=== PATIENT | female | born 1980 | race Hispanic/Latino ===

== ENCOUNTER 2020-04-14 07:50 | Day surgery (SDC) | payer BC ==
[2020-04-13 14:41] LABS: Absolute Lymphocytes (CBC) 1.6 K/uL (0.7-4.9); Basophils % 0.9 % (0-1.3); Lymphocytes % 31.8 % (15.3-44.8); MPV 8.6 fL (7.6-11.3); RBC Red Blood Cell Count 4.59 M/uL (3.86-4.86)
--- NOTE | 2020-04-13 14:51 | RAD REPORT ---
EXAM DESCRIPTION: RAD - Chest Pa And Lat (2 Views) - 04/13/2020 2:47 pm CLINICAL HISTORY: PRE OP Chest pain. COMPARISON: No comparisons FINDINGS: The lungs are clear. The heart is normal in size. No displaced fractures. IMPRESSION: No acute or concerning finding suspected.
[2020-04-13 15:33] LABS: Bilirubin Direct 0.1 mg/dL (0-0.2); Bilirubin Total 0.5 mg/dL (0.2-1.0); Potassium 3.7 mmol/L (3.5-5.1); Protein, Total 7.7 g/dL (6.4-8.2)
[2020-04-14] MEDS ORDERED: Ringers Lactate 1,000 ML IV ONE (08:17)
[2020-04-14] MEDS ORDERED: ROCURONIUM 50 MG/5 ML VIAL IV ONE ×2 (08:22→08:34)
[2020-04-14] MEDS ORDERED: propofoL 200 MG/20 ML VIAL IV ONE ×2 (08:22→08:34)
[2020-04-14] MEDS ORDERED: LIDOCAINE 2% MPF 5 ML VIAL ONE ×2 (08:23→08:34)
[2020-04-14] MEDS ORDERED: GLYCOPYRROLATE 0.2 MG/ML SYR ONE ×2 (08:23→09:40)
[2020-04-14] MEDS ORDERED: FENTANYL CITR 250 MCG/5 ML ONE (08:23)
[2020-04-14] MEDS ORDERED: MIDAZOLAM HCL 2 MG/2 ML INJ ONE ×2 (08:23→08:34)
[2020-04-14] MEDS ORDERED: ONDANSETRON 4 MG/2 ML VIAL ONE ×3 (08:25→10:39)
[2020-04-14] MEDS ORDERED: KETOROLAC 30 MG/ML INJ ONE (08:34)
[2020-04-14] MEDS ORDERED: dexAMETHasone 10 MG/ML VIAL ONE (08:34)
[2020-04-14] MEDS ORDERED: FENTANYL CITR 100 MCG/2 ML ONE (08:34)
[2020-04-14] MEDS: CEFOXITIN/SWI 1gm 1 GM/10 ML SYR ONE ×2 (08:46→09:00)
[2020-04-14] MEDS ORDERED: NEOSTIGMINE 1 MG/ML -5 ML ONE (09:40)
[2020-04-14] MEDS: PROMETHAZINE INJ 25 MG/ML AMP ONE ×2 (10:00→10:09)
[2020-04-14] MEDS ORDERED: Mastisol Adhesive Liq ONE (10:02)
[2020-04-14] MEDS ORDERED: HYDROMORPHONE HCL 1 MG/ML INJ ONE (10:16)
[2020-04-14] MEDS ORDERED: MEPERIDINE HCL 25 MG/ML SYR ONE (10:19)
--- NOTE | 2020-04-14 10:34 | OP ---
Date of Procedure: 04/14/2020 Surgeon: Luis Miguel Escalona MD Commercial Marketing Specialist: ANALY Acevedo. Preoperative Diagnosis: Chronic cholecystitis, cholelithiasis. Postoperative Diagnosis: Chronic cholecystitis, cholelithiasis. Procedure: Laparoscopic cholecystectomy. Estimated Blood Loss: Minimal. Specimen: Gallbladder. Finding: As above. Anesthesia: General. Complications: None. The patient tolerated the procedure in stable condition, taken to Recovery in good general condition. Procedure In Detail: The patient was brought to the OR and placed in supine position. General anest hesia was begun. Patient was prepped and draped in usual sterile fashion. Marcaine 0.5% was infiltr ated locally. A 15-blade was used to make a 1 cm supraumbilical midline incision. Subcutaneous tiss ue was divided. Fascia identified and divided. #1 Vicryl stay suture was placed. Peritoneal cavity was entered with sharp and blunt dissection. 12 mm trocar was placed into the peritoneal cavity und er direct vision. Pneumoperitoneum was established. Three 5 trocars were placed under direct vision . One in the epigastrium just to the right of midline and 2 in the right subcostal region. Laparosc opy revealed chronic inflammation of the gallbladder consistent with chronic cholecystitis. Fundus w as retracted superiorly. Infundibulum was identified and retracted inferolaterally. Cystic duct and cystic artery were clearly identified with blunt dissection. Clips were placed. Both structures we re divided. Cautery was used to remove the gallbladder from the liver bed. Bleeding on the liver be d was controlled with cautery. Gallbladder was retrieved through the umbilicus via an EndoCatch bag. Right upper quadrant was irrigated. Effluent was clear. No evidence of bleeding or bile leakage a ppreciated. Subsequently, all trocars were removed under direct vision. Stay sutures were tied to e ach other across the fascial defect. Subcutaneous wounds were irrigated. Bleeding controlled with c autery. 3-0 chromic used to approximate the subcutaneous tissue and close the skin. Sterile dressin g was applied. The patient was awakened and taken to Recovery in good general condition. Discharge Note: The patient will go to Day Surgery and home when stable. Disposition: Home. Condition: Stable. Discharge Instructions: Resume home medications and diet. Activity as tolerated. No heavy lifting. Remove outer dressing in 2 days. Shower. Keep wound clean dry. Follow up in my office 1 week. C all for appointment. Tylenol No. 3 one tablet p.o. q.4 p.r.n. pain. THERON/DEMETRIO Voice ID: [id number] Report ID: [id number]
[2020-04-14 11:41] VITALS: BP 125/82; TEMP 97; O2SAT 96
[2020-04-14] MEDS ORDERED: HYDROCODONE/APAP 7.5/325 MG TAB ONE (11:42)
== END 2020-04-14 12:00 | disposition home health service (06) ==
LOC: OR 07:50
PROVIDERS: ATTEND Surgery
PROC: 0FT44ZZ Resection of Gallbladder, Percutaneous Endoscopic Approach (ICD-10-PCS; principal; 2020-04-14 09:00)
DX: K80.10 Calculus of gallbladder with chronic cholecystitis without obstruction (principal); Z91.013 Allergy to seafood; Z20.828 Contact with and (suspected) exposure to other viral communicable diseases
CPT/HCPCS: 93005 ×2; 85025; 80048; 36415; 82150; 84703; 80076; 88304; 71046; 47562; U0003; J2704; J2550; J2250; J3010 ×2; J1100; J2175; J1170; J2710; J7120; J2405 ×2

== ENCOUNTER 2021-01-17 00:37 | Inpatient (IN) | payer BC ==
[2021-01-17 01:27] LABS: Absolute Lymphocytes (CBC) 1.8 K/uL (0.7-4.9); Basophils % 0.6 % (0-1.3); Hematocrit 42.5 % (36.0-45.0); Lymphocytes % 23.7 % (15.3-44.8); MPV 8.3 fL (7.6-11.3); RBC Red Blood Cell Count 4.85 M/uL (3.86-4.86)
[2021-01-17] MEDS ORDERED: ONDANSETRON 4 MG/2 ML VIAL ONE ×2 (01:37→04:15)
[2021-01-17] MEDS ORDERED: NA CHLORIDE 0.9% 1,000 ML ONE (01:37)
[2021-01-17 01:38] LABS: Albumin 4.4 g/dL (3.4-5.0); Bilirubin Direct 0.2 mg/dL (0-0.2); Bilirubin Total 0.6 mg/dL (0.2-1.0); Potassium 3.4 mmol/L (3.5-5.1); Protein, Total 8.8 g/dL (6.4-8.2)
[2021-01-17] MEDS ORDERED: MORPHINE 4 MG/ML SYR ONE ×2 (02:11→04:43)
[2021-01-17 02:12] LABS: Urine Blood 2+ (Negative); Urine Glucose Negative (Negative); Urine Protein Trace (Negative); Urine Specific Gravity >=1.030 (1.005-1.030); Urine pH 5.5 (5.0-7.0)
[2021-01-17 03:04] LABS: Urine Specific Gravity/Preg >1.030 (1.005-1.030)
[2021-01-17 03:52] LABS: Urine Bacteria 20-50 /HPF (<20); Urine RBC <5 /HPF (NONE SEEN)
--- NOTE | 2021-01-17 04:11 | ER ---
Nurse's Notes [facility] Name: Eros Craft Age: 40 yrs Sex: Female : 1980 Arrival Date: 01/17/2021 Time: 00:40 Bed 4 Private MD: Diagnosis: Other intestinal obstruction Presentation: 01/17 00:53 Chief complaint: Patient states: she has abdominal adhesions from prior surgery she bb sees Dr Escalona today she was running and afterwards she started having severe abdominal pain and nausea. Coronavirus screen: At this time, the client does not indicate any symptoms associated with coronavirus-19. Ebola Screen: No symptoms or risks identified at this time. Initial Sepsis Screen: Does the patient meet any 2 criteria? No. Patient's initial sepsis screen is negative. Does the patient have a suspected source of infection? No. Patient's initial sepsis screen is negative. Risk Assessment: Do you want to hurt yourself or someone else? Patient reports no desire to harm self or others. Onset of symptoms was January 16, 2021. 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 - Social history:: Smoking status: Patient denies any tobacco usage or history of. Screenin:23 Abuse screen: Denies threats or abuse. Denies injuries from another. Nutritional jm8 screening: No deficits noted. Tuberculosis screening: No symptoms or risk factors identified. Fall Risk None identified. Assessment: 01:22 General: Appears in no apparent distress. comfortable, Behavior is calm, cooperative, jm8 appropriate for age. Pain: Complains of pain in abdomen Pain currently is 10 out of 10 on a pain scale. Quality of pain is described as crampy. Neuro: No deficits noted. Level of Consciousness is awake, alert, obeys commands, Oriented to person, place, time. Cardiovascular: No deficits noted. Respiratory: No deficits noted. GI: Bowel sounds present X 4 quads. Abd is soft X 4 quads Abdomen is tender to palpation Reports lower abdominal pain, upper abdominal pain, constipation, nausea, vomiting. : No deficits noted. No signs and/or symptoms were reported regarding the genitourinary system. EENT: No deficits noted. No signs and/or symptoms were reported regarding the EENT system. Derm: No deficits noted. No signs and/or symptoms reported regarding the dermatologic system. Musculoskeletal: No deficits noted. No signs and/or symptoms reported regarding the musculoskeletal system. 02:16 Reassessment: Elian Craft- [phone]. jm8 03:59 Reassessment: pt states she is feeling nauseous again Dr Krueger notified new orders bb received pt medicated see OCT. 08:17 Reassessment: Patient appears in no apparent distress at this time. No changes from ld1 previously documented assessment. Patient and/or family updated on plan of care and expected duration. Pain level reassessed. Resting in bed. Waiting to go upstairs to Med surg. Vital Signs: 00:53 BP 145 / 102; Pulse 78; Resp 16 S; Temp 98.2(O); Pulse Ox 100% on R/A; Weight 79.38 kg bb (R); Height 5 ft. 2 in. (157.48 cm) (R); Pain 10/10; 03:14 BP 134 / 93; Pulse 65; Resp 16; Pulse Ox 100% ; Pain 7/10; jm8 04:43 BP 147 / 102; Pulse 73; Resp 16; Pulse Ox 96% on R/A; jm8 06:17 BP 144 / 101; Pulse 91; Resp 16; Pulse Ox 97% on R/A; jm8 00:53 Body Mass Index 32.01 (79.38 kg, 157.48 cm) ED Course: 00:40 Patient arrived in ED. am4 00:56 Triage completed. bb 00:57 Antolin Krueger MD is Attending Physician. tw4 00:57 Arm band placed on Patient placed in an exam room, on a stretcher, on pulse oximetry. bb Family accompanied patient. 01:23 Patient has correct armband on for positive identification. Bed in low position. Call [facility] light in reach. Side rails up X2. Adult w/ patient. 01:23 Inserted saline lock: 22 gauge in right antecubital area, using aseptic technique. [facility] 02:57 CT Abd/Pelvis - IV Contrast Only In Process Unspecified. EDMS 04:09 Dannie Wray MD is Hospitalizing Provider. tw4 05:05 NGT: inserted 14 Fr. via left nare. verified return of gastric contents, to jm8 intermittent suction. Returned gastric contents. Patient tolerated well. 05:43 Hospitalizing Provider role handed off by Dannie Wray MD tw4 05:43 Dayday Bojorquez is Hospitalizing Provider. tw4 08:18 No provider procedures requiring assistance completed. Patient admitted, IV remains in ld1 place. intact, bleeding controlled, No redness/swelling at site. Administered Medications: 01:21 Drug: NS 0.9% 1000 ml Route: IV; Rate: 1 bolus; Site: right antecubital; jm8 02:00 Follow up: IV Status: Completed infusion jm8 01:21 Drug: Zofran (Ondansetron) 4 mg Route: IVP; Site: right antecubital; jm8 04:26 Follow up: Response: No adverse reaction jm8 01:54 Drug: morphine 4 mg Route: IVP; Site: right antecubital; jm8 04:26 Follow up: Response: No adverse reaction jm8 03:59 Drug: Zofran (Ondansetron) 4 mg Route: IVP; Site: right antecubital; bb 05:17 Follow up: Response: No adverse reaction 8 04:26 Drug: morphine 4 mg Route: IVP; Site: right antecubital; jm8 05:17 Follow up: Response: No adverse reaction 8 Outcome: 04:10 Decision to Hospitalize by Provider. tw4 08:19 Admitted to Med/surg accompanied by tech, via stretcher, room 202, with chart, Report ld1 called to RG Polanco 08:19 Condition: stable 08:22 Patient left the ED. ld1 Signatures: Dispatcher [employer] EDShikha Barriga, RN RN Antolin Kapoor MD MD tw4 Nadia Taveras Lauren, RN RN ld1 Dayday Martin, RG DIEZ jm8 Corrections: (The following items were deleted from the chart) 04:46 04:39 CORONAVIRUS+MR.LAB.BRZ drawn and sent. [facility]
--- NOTE | 2021-01-17 04:11 | EDPHYS ---
Physician Documentation [facility] Name: Eros Craft Age: 40 yrs Sex: Female : 1980 Arrival Date: 01/17/2021 Time: 00:40 Bed 4 Private MD: ED Physician Antolin Krueger HPI: 01/17 03:12 This 40 yrs old Female presents to ER via Ambulatory with complaints of tw4 Abdominal Pain, Nausea/Vomiting. 03:12 The patient presents to the emergency department with nausea, that is severe, vomiting. tw4 Onset: The symptoms/episode began/occurred today. Possible causes: flare up of bowel problem. Possible causes: flare up of bowel problem, ADHESIONS. The symptoms are aggravated by nothing. The symptoms are alleviated by nothing. Associated signs and symptoms: Pertinent positives: abdominal pain. The patient has experienced similar episodes in the past, a few times. The patient has not recently seen a physician. 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 - Social history:: Smoking status: Patient denies any tobacco usage or history of. ROS: 03:12 Constitutional: Negative for fever, chills, and weight loss, Eyes: Negative for injury, tw4 pain, redness, and discharge, ENT: Negative for injury, pain, and discharge, Cardiovascular: Negative for chest pain, palpitations, and edema, Respiratory: Negative for shortness of breath, cough, wheezing, and pleuritic chest pain, MS/Extremity: Negative for injury and deformity, Skin: Negative for injury, rash, and discoloration, Neuro: Negative for headache, weakness, numbness, tingling, and seizure. 03:12 Abdomen/GI: Positive for abdominal pain, nausea and vomiting, nausea, vomiting, Negative for diarrhea, constipation, anorexia, dysphagia, hematemesis, black/tarry stool, rectal pain, rectal bleeding, bowel incontinence, flatulence. Exam: 03:12 Head/Face: Normocephalic, atraumatic. tw4 03:12 Eyes: Pupils equal round and reactive to light, extra-ocular motions intact. Lids and lashes normal. Conjunctiva and sclera are non-icteric and not injected. Cornea within normal limits. Periorbital areas with no swelling, redness, or edema. Chest/axilla: Normal chest wall appearance and motion. Nontender with no deformity. No lesions are appreciated. Cardiovascular: Regular rate and rhythm with a normal S1 and S2. No gallops, murmurs, or rubs. Normal PMI, no JVD. No pulse deficits. Respiratory: Lungs have equal breath sounds bilaterally, clear to auscultation and percussion. No rales, rhonchi or wheezes noted. No increased work of breathing, no retractions or nasal flaring. Skin: Warm, dry with normal turgor. Normal color with no rashes, no lesions, and no evidence of cellulitis. MS/ Extremity: Pulses equal, no cyanosis. Neurovascular intact. Full, normal range of motion. Neuro: Awake and alert, GCS 15, oriented to person, place, time, and situation. Cranial nerves II-XII grossly intact. Motor strength 5/5 in all extremities. Sensory grossly intact. Cerebellar exam normal. Normal gait. 03:12 Constitutional: The patient appears alert, awake, in obvious distress, moderately distressed, obviously ill, pale, uncomfortable. 03:12 Abdomen/GI: Inspection: abdomen appears normal, Bowel sounds: diminished, Palpation: moderate abdominal tenderness, in all quadrants. Vital Signs: 00:53 BP 145 / 102; Pulse 78; Resp 16 S; Temp 98.2(O); Pulse Ox 100% on R/A; Weight 79.38 kg bb (R); Height 5 ft. 2 in. (157.48 cm) (R); Pain 10/10; 03:14 BP 134 / 93; Pulse 65; Resp 16; Pulse Ox 100% ; Pain 7/10; jm8 04:43 BP 147 / 102; Pulse 73; Resp 16; Pulse Ox 96% on R/A; jm8 06:17 BP 144 / 101; Pulse 91; Resp 16; Pulse Ox 97% on R/A; jm8 00:53 Body Mass Index 32.01 (79.38 kg, 157.48 cm) MDM: 00:57 Patient medically screened. tw4 06:43 Differential diagnosis: Nonspecific abd pain, gastritis, viral gastroenteritis, tw4 gastroenteritis. Data reviewed: vital signs, nurses notes. Data reviewed: lab test result(s), CBC, electrolytes, hepatic panel, radiologic studies, CT scan. Data interpreted: Pulse oximetry: is not applicable for this patient encounter. Test interpretation: by ED physician or midlevel provider:. Counseling: I had a detailed discussion with the patient and/or guardian regarding: the historical points, exam findings, and any diagnostic results supporting the discharge/admit diagnosis, lab results, radiology results, the need for further work-up and treatment in the hospital. Physician consultation: Dayday Bojorquez regarding admission, to the medical/surgical unit. patient's condition. 01/17 00:56 Order name: Basic Metabolic Panel; Complete Time: 01:41 [facility] 01/17 01:41 Interpretation: Normal except: K 3.4; GFR 69. [facility] 01/17 00:56 Order name: CBC with Diff; Complete Time: 01:41 [facility] 01/17 01:41 Interpretation: Within normal limits. 01/17 00:56 Order name: Hepatic Function; Complete Time: 01:41 [facility] 01/17 01:41 Interpretation: Normal except: TP 8.8; GLOB 4.4; A/G 1.0. [facility] 01/17 00:56 Order name: Lipase; Complete Time: 01:41 [facility] 01/17 01:42 Interpretation: Within normal limits: LIP 114. [facility] 01/17 02:12 Order name: Urine Dipstick-Ancillary; Complete Time: 04:37 [facility] 01/17 04:37 Interpretation: Normal except: UPROT Trace; UBLD 2+. [facility] 01/17 02:14 Order name: Urine --Ancillary (enter results); Complete Time: 04:37 [facility]5 01/17 04:37 Interpretation: Normal except: USPGRP >1.030. [facility] 01/17 01:00 Order name: CT Abd/Pelvis - IV Contrast Only [facility] 01/17 02:17 Order name: Urine Microscopic Only; Complete Time: 04:37 jm8 01/17 04:39 Interpretation: Normal except: UBACT 20-50; SQEPI 10-20. [facility] 01/17 03:52 Order name: Urine Culture [facility] 01/17 06:06 Order name: SARS-COV-2 RT PCR [facility] 01/17 00:56 Order name: IV Saline Lock; Complete Time: 01:17 4 01/17 00:56 Order name: Labs collected and sent; Complete Time: 01:17 4 01/17 00:56 Order name: Urine Dipstick-Ancillary (obtain specimen); Complete Time: 02:15 4 01/17 00:56 Order name: Urine Test (obtain specimen); Complete Time: 02:13 4 01/17 04:33 Order name: Nasogastric Tube; Complete Time: 05:03 4 01/17 04:41 Order name: CONS Physician Consult EDNJ Administered Medications: : Drug: NS 0.9% 1000 ml Route: IV; Rate: 1 bolus; Site: right antecubital; 8 02:00 Follow up: IV Status: Completed infusion 8 01:21 Drug: Zofran (Ondansetron) 4 mg Route: IVP; Site: right antecubital; jm8 04:26 Follow up: Response: No adverse reaction jm8 01:54 Drug: morphine 4 mg Route: IVP; Site: right antecubital; jm8 04:26 Follow up: Response: No adverse reaction 8 03:59 Drug: Zofran (Ondansetron) 4 mg Route: IVP; Site: right antecubital; bb 05:17 Follow up: Response: No adverse reaction 8 04:26 Drug: morphine 4 mg Route: IVP; Site: right antecubital; jm8 05:17 Follow up: Response: No adverse reaction [facility] Disposition: 01/17/21 04:10 Hospitalization ordered by Dayday Bojorquez for Inpatient Admission. Preliminary diagnosis is Other intestinal obstruction. - Bed requested for Telemetry/MedSurg (Inpatient). - Status is Inpatient Admission. ld1 - Condition is Stable. - Problem is new. - Symptoms have improved. Signatures: Dispatcher [employer] EDNJ Whitney Simons RN RN dw Ballard, Brenda, RN RN bb Wadley, Terrence, MD MD tw4 Melyssa Mcclendon RN RN ld1 Dayday Martin RN RN jm8 Corrections: (The following items were deleted from the chart) 04:46 04:28 CORONAVIRUS+MR.LAB.BRZ ordered. [facility] EDNJ 05:43 04:10 Hospitalization Ordered by Dannie Wray MD for Inpatient Admission. Preliminary tw4 diagnosis is Other intestinal obstruction. Bed requested for Telemetry/MedSurg (Inpatient). Status is Inpatient Admission. Condition is Stable. Problem is new. Symptoms have improved. tw4 07:34 05:43 01/17/2021 04:10 Hospitalization Ordered by Dayday Bojorquez for Inpatient dw Admission. Preliminary diagnosis is Other intestinal obstruction. Bed requested for Telemetry/MedSurg (Inpatient). Status is Inpatient Admission. Condition is Stable. Problem is new. Symptoms have improved. tw4 08:22 07:34 01/17/2021 04:10 Hospitalization Ordered by Dayday Bojorquez for Inpatient ld1 Admission. Preliminary diagnosis is Other intestinal obstruction. Bed requested for Telemetry/MedSurg (Inpatient). Status is Inpatient Admission. Condition is Stable. Problem is new. Symptoms have improved. dw
--- NOTE | 2021-01-17 04:49 | P.HP ---
Certification for Inpatient Patient admitted to: Inpatient With expected LOS: >2 Midnights Patient will require the following post-hospital care: None Practitioner: I am a practitioner with admitting privileges, knowledge of patient current condition, hospital course, and medical plan of care. Services: Services provided to patient in accordance with Admission requirements found in Title 42 Section 412.3 of the Code of Federal Regulations Patient History Date of Service: 01/17/21 Reason for admission: SBO History of Present Illness: Ms. Craft is a 40 yo F here today with diffuse abdominal pain, nausea and vomiting beginning at 5pm after her 1 mile run. The pain is bearable after receiving analgesics. Her last BM was earlier today. These symptoms happened once before in August, and she was diagnosed with a bowel obstruction. She had a cholecystectomy in May of 2020. Imaging consistent with SBO. K 3.4. Allergies No Known Allergies Allergy (Unverified 04/13/20 14:00) Home Medications: Escitalopram [Lexapro] 20 mg PO DAILY 04/13/20 - Past Medical/Surgical History Has patient received pneumonia vaccine in the past: Yes Diabetic: No -: depression -: cholecystectomy 05/2020 -: 3 C sections - Social History Smoking Status: Never smoker Alcohol use: No CD- Drugs: No Caffeine use: Yes Place of Residence: Home Review of Systems 10-point ROS is otherwise unremarkable Gastrointestinal: Nausea, Vomiting, Abdominal Pain Physical Examination - Physical Exam General: Alert, In no apparent distress HEENT: Atraumatic, PERRLA, Mucous membr. moist/pink, EOMI, Sclerae nonicteric Neck: Supple, 2+ carotid pulse no bruit, No LAD, Without JVD or thyroid abnormality Respiratory: Clear to auscultation bilaterally, Normal air movement Cardiovascular: Regular rate/rhythm, Normal S1 S2 Gastrointestinal: Hypoactive, No ascites, No masses, No rebound, Distended, Tenderness Musculoskeletal: No tenderness Integumentary: No rashes Neurological: Normal gait, Normal speech, Normal strength at 5/5 x4 extr, Normal tone, Normal affect Lymphatics: No axilla or inguinal lymphadenopathy - Studies Laboratory Data (last 24 hrs) 01/17/21 01:13: WBC 7.60, Hgb 14.9, Hct 42.5, Plt Count 294 01/17/21 01:13: Sodium 141, Potassium 3.4 L, BUN 14, Creatinine 0.90, Glucose 105, Total Bilirubin 0.6, AST 20, ALT 28, Alkaline Phosphatase 70, Lipase 114 Assessment and Plan - Problems (Diagnosis) (1) SBO (small bowel obstruction) Current Visit: Yes Status: Acute - Plan surgery consulted NG tube placed in ED NPO, continue IVF pain management and antiemetics as needed potassium replacement protocol Discharge Plan: Home Plan to discharge in: 48 Hours - Advance Directives Does patient have a Living Will: No Does patient have a Durable POA for Healthcare: No - Code Status/Comfort Care Code Status Assessed: Yes (full code) Critical Care: No Time Spent Managing Pts Care (In Minutes): 70
[2021-01-17] MEDS ORDERED: ACETAMINOPHEN 500 MG TAB PO PRN (08:43)
[2021-01-17] MEDS: NA CHLORIDE 0.9% 1,000 ML IV SCH ×2 (09:28→18:43)
[2021-01-17] MEDS: MORPHINE 4 MG/ML SYR IV PRN ×3 (09:28→21:04)
[2021-01-17] MEDS: ONDANSETRON 4 MG/2 ML VIAL IV PRN ×3 (09:28→21:04)
[2021-01-17] MEDS: KCL 20 MEQ/100 mL IVPB 20 MEQ/100 ML BAG IV SCH ×2 (09:29→12:45)
[2021-01-17 09:56] VITALS: BMI 32.0
[2021-01-17 10:13] LABS: ALT/SGPT 38 U/L (12-78); AST/SGOT 37 U/L (15-37); Albumin 4.1 g/dL (3.4-5.0); Alkaline Phosphatase 68 U/L (45-117); BUN Blood Urea Nitrogen 12 mg/dL (7-18); Bicarbonate 25 mmol/L (21-32); Bilirubin Total 0.6 mg/dL (0.2-1.0); Glucose Level 161 mg/dL (74-106); HDL Cholesterol 77 mg/dL (40-60); LDL Cholesterol, Calculated 126 (<130); Magnesium 2.1 mg/dL (1.8-2.4); Phosphorus 2.6 mg/dL (2.5-4.9); Potassium 3.6 mmol/L (3.5-5.1); Protein, Total 7.8 g/dL (6.4-8.2); Sodium Level 138 mmol/L (136-145)
--- NOTE | 2021-01-17 11:02 | RAD REPORT ---
EXAM DESCRIPTION: CT - Abdomen Pelvis W Contrast - 01/17/2021 6:54 am CLINICAL HISTORY: The patient is 40 years old and is Female; ABD PAIN TECHNIQUE: Axial computed tomography images of the abdomen and pelvis with intravenous contrast. S agittal and coronal reformatted images were created and reviewed. This CT exam was performed using one or more of the following dose reduction techniques: automated exposure control, adjustment of t he mA and/or kV according to patient size, and/or use of iterative reconstruction technique. COMPARISON: CT abdomen and pelvis 08/31/2020. FINDINGS: Lung bases: Unremarkable. No mass. No consolidation. ABDOMEN: Liver: Stable 2 cm low-density lesion in the left liver which may represent a cyst. There are a few smaller subcentimeter low-density lesions in the liver measuring up to 6 mm which are too small to fully characterize but may represent cysts. Gallbladder and bile ducts: Gallbladder is surgically absent. No ductal dilation. Pancreas: Unremarkable. No mass. No ductal dilation. Spleen: Unremarkable. No splenomegaly. Adrenals: Unremarkable. No mass. Kidneys and ureters: Scattered subcentimeter low-density lesions in the kidneys which are too sm all fully characterize but likely represent cysts. ACR White Paper guidelines (Herts, et al. JACR 201 8; 15(2):264-273) suggest no follow-up is necessary. Stomach and bowel: Small bowel is dilated measuring up to 6.3 cm cm in diameter in the right low er quadrant with air-fluid levels. There is a small amount of fluid surrounding the bowel in the lowe r abdomen. There is the suggestion of a short segment of bowel wall thickening involving the small walt l in the right lower quadrant. PELVIS: Appendix: No findings to suggest acute appendicitis. Bladder: Unremarkable. No mass. Reproductive: Unremarkable as visualized. ABDOMEN and PELVIS: Intraperitoneal space: Unremarkable. No free air. No significant fluid collection. Bones/joints: No acute fracture. No dislocation. Soft tissues: Unremarkable. Vasculature: Unremarkable. No abdominal aortic aneurysm. Lymph nodes: Unremarkable. No enlarged lymph nodes. IMPRESSION: 1. Small bowel is dilated measuring up to 6.3 cm cm in diameter in the right lower josh drant with air-fluid levels. There is a small amount of fluid surrounding the bowel in the lower abdo men. Findings are suggestive of ileus or partial small bowel obstruction. 2. There is the suggestion of a short segment of bowel wall thickening involving the small bowel in the right lower quadrant. Electronically signed by: Stiven Malave MD 01/17/2021 3:40 AM CDT Due to temporary technical issues with the PACS/Fluency reporting system, reports are being signed by the in house radiologist without review as a courtesy to ensure prompt reporting. The interpreting r adiologist is fully responsible for the content of the report.
--- NOTE | 2021-01-17 11:09 | RAD REPORT ---
EXAM DESCRIPTION: RAD - Abdomen 1 View (KUB) - 01/17/2021 11:01 am CLINICAL HISTORY: ngt positioning COMPARISON: Abdomen Pelvis W Contrast dated 01/17/2021 FINDINGS: NG/OG tube has been placed. Stomach appears decompressed. Tip is in the left upper quadran t proximal body of the stomach. Side hole of the tubing is just distal to the GE junction. Prominent air-filled small bowel loops are present. No free air or pneumatosis.
[2021-01-17] MEDS ORDERED: HYDRALAZINE HCL 20 MG/ML VIAL IV PRN (12:39)
[2021-01-17] MEDS ORDERED: MORPHINE 4 MG/ML SYR IV ONE (12:39)
--- NOTE | 2021-01-17 13:31 | P.PN ---
Date of Service: 01/17/21 Patient seen and examined. She is complaining of uncontrolled pain and getting IV morphine around the clock. Not much NG tube output since this morning. Repeat KUB shows decompressed stomach and prominent small bowel. Case discussed with Dr. Taveras. He suspect possible inflammatory bowel disease given thickening of bowel in in the right lower quadrant-which may be the terminal ileum. GI consulted. Patient started on a trial of IV steroid. Maintain NG tube. Pain management as needed. Start empiric IV antibiotics.
[2021-01-17] MEDS: METHYLPREDNISOLONE 40 MG INJ IV SCH (17:17)
[2021-01-17] MEDS: METRONIDAZOLE 500mg IVPB 500 MG/100 ML BAG IV SCH (17:18)
[2021-01-17] MEDS: Ringers Lactate 1,000 ML IV SCH (20:06)
[2021-01-17] MEDS: CIPROFLOXACIN 400mg IV 400 MG/200 ML BAG IV SCH (20:06)
[2021-01-18] MEDS: METRONIDAZOLE 500mg IVPB 500 MG/100 ML BAG IV SCH ×3 (01:00→17:51)
[2021-01-18] MEDS: Ringers Lactate 1,000 ML IV SCH ×4 (01:11→22:40)
[2021-01-18] MEDS: METHYLPREDNISOLONE 40 MG INJ IV SCH ×3 (01:13→17:51)
[2021-01-18 04:22] LABS: Absolute Lymphocytes (CBC) 0.4 K/uL (0.7-4.9); Basophils % 0.2 % (0-1.3); Hematocrit 37.3 % (36.0-45.0); Lymphocytes % 4.2 % (15.3-44.8); MPV 8.4 fL (7.6-11.3); RBC Red Blood Cell Count 4.29 M/uL (3.86-4.86)
[2021-01-18 04:48] LABS: ALT/SGPT 28 U/L (12-78); AST/SGOT 18 U/L (15-37); Albumin 3.4 g/dL (3.4-5.0); Alkaline Phosphatase 54 U/L (45-117); BUN Blood Urea Nitrogen 9 mg/dL (7-18); Bicarbonate 26 mmol/L (21-32); Bilirubin Total 0.8 mg/dL (0.2-1.0); Glucose Level 139 mg/dL (74-106); Magnesium 2.2 mg/dL (1.8-2.4); Phosphorus 1.6 mg/dL (2.5-4.9); Potassium 3.8 mmol/L (3.5-5.1); Protein, Total 6.9 g/dL (6.4-8.2); Sodium Level 140 mmol/L (136-145); Thyroid Stimulating Hormone 0.431 uIU/mL (0.360-3.740)
[2021-01-18 04:51] LABS: Blood Morphology Comment NOT SEEN (NOT SEEN); Platelet Estimate ADEQ
--- NOTE | 2021-01-18 07:12 | RAD REPORT ---
EXAM DESCRIPTION: RAD - Abdomen 1 View (KUB) - 01/18/2021 6:29 am CLINICAL HISTORY: Abdomen pain. FINDINGS: Nasogastric tube is present within the distal stomach. No significant change has occurred in the dilated small bowel which could represent a partial mechani mark obstruction or ileus. Air is present within portions of the colon.
[2021-01-18] MEDS ORDERED: POTASSIUM PHOS IN 0.9 % NACL 15 MMOL/250 ML BAG IV ONE (08:00)
[2021-01-18] MEDS: CIPROFLOXACIN 400mg IV 400 MG/200 ML BAG IV SCH ×2 (08:45→22:07)
[2021-01-18] MEDS: CEPACOL LOZENGES PO PRN (11:40)
--- NOTE | 2021-01-18 12:40 | P.CNS ---
Date of Consult: 01/17/21 Reason for Consult: SBO Chief Complaint: SBO History of Present Illness: 40 y/o fe,carlyn with recurrentSBO and abd since august. Dr Escalona which is out ot town for few days has been seen the patient with plans for possible diagnostic lap in the planning as per . Allergies No Known Allergies Allergy (Unverified 04/13/20 14:00) Home Medications: Escitalopram [Lexapro] 20 mg PO DAILY 04/13/20 - Past Medical/Surgical History Diabetic: No Past Medical History: Reviewed- Non-Contributory -: depression -: cholecystectomy 05/2020 -: 3 C sections - Social History Alcohol use: No CD- Drugs: No Caffeine use: Yes Place of Residence: Home Review of Systems General: Malaise ENT: Unremarkable Respiratory: Unremarkable Cardiovascular: Unremarkable Gastrointestinal: Nausea, Abdominal Pain, Distention, As per HPI Genitourinary: Unremarkable Physical Examination Temp Pulse Resp BP Pulse Ox 98.2 F 69 16 122/77 96 01/18/21 08:00 01/18/21 08:00 01/18/21 08:00 01/18/21 08:00 01/18/21 08:00 General: Alert, Oriented x3, Cooperative HEENT: PERRLA, EOMI Neck: Supple Cardiovascular: No edema Gastrointestinal: No rebound, No guarding, Hyperactive, Tenderness (mild, no peritonitis) Musculoskeletal: No erythema, No tenderness Integumentary: No rashes Neurological: Normal speech Imagings Data: CT scan reviewed with patient Conclusions/Impression: SBO NPO. NGT Ambulation
--- NOTE | 2021-01-18 13:43 | PN ---
Date of Progress Note: 01/18/2021 Diagnosis: Small bowel obstruction. History Of Present Illness: This is the case of a 40-year-old patient, patient of Dr. Escalona, with re current bowel obstruction in the last 6 months. As per the patient and per the patient's , th ere were some plans in the past to do a diagnostic labs since the patient has recurrent stricture, bu t that has not been done yet. Now, she comes with bowel obstruction once again and a surgical consul t was obtained. Dr. Escalona is out of the town for the last 2 days. He is coming back tomorrow and wi ll cover the patient in the meantime. Today, she has not passed any gas yet. She feels less distent ion in the abdomen. The NG tube was putting about 300 mL, but there is no clinical or radiological e vidence of any major improvement. Physical Examination: Chest: Clear. Abdomen: Soft and depressible. No peritonitis. Still distended. Extremities: Good capillary refill. Laboratory Data: X-ray still showing the evidence of bowel obstruction. Plan: I discussed the case with the patient and the patient's . Once again, we discussed the option of diagnostic lap versus exploratory laparotomy. Apparently with diagnostic lap, we will be able to know if we can do this laparoscopically since the bowel is very distended. Hopefully, by nuno orrow, it is better. If by tomorrow Dr. Escalona comes back, then we will explain to him the progress s he has made and we may have to decide the options of surgery during this admission. Once again, wait ing for elective surgery. The benefits, alternatives, and risks of exploration were fully explained to the patient, which include, but not limited to infection, bleeding, damage to adjacent structures, anesthesia complication, nonhealing wound, new adhesions, PA, and even . They also understand this may not relieve any symptoms. They understood we are going to continue with the NG tube, ambulation. HM/MODL Voice ID: [id number] Report ID: [id number]
--- NOTE | 2021-01-18 15:04 | P.PN ---
Subjective Date of Service: 01/18/21 Chief Complaint: SBO Patient reports significant improvement in the abdominal pain. No BM or flatus yet. NG tube output about 300 mL over the past 24 hrs. Physical Examination - Vital Signs Temperature: 99.3 F Blood Pressure: 139/83 Pulse: 85 Respirations: 16 Pulse Ox (%): 98 - Physical Exam General: Alert, In no apparent distress HEENT: Other (NGT) Respiratory: Clear to auscultation bilaterally, Normal air movement Cardiovascular: No edema, Regular rate/rhythm, Normal S1 S2 Gastrointestinal: Hypoactive, Soft and benign, Distended (Mildly distended.) Musculoskeletal: No swelling, No tenderness Integumentary: No rashes, No erythema Neurological: Normal strength at 5/5 x4 extr Assessment And Plan - Current Problems (Diagnosis) (1) SBO (small bowel obstruction) Current Visit: Yes Status: Acute - Plan There is a concern for inflammatory bowel disease given the findings of thickened section small-bowel wall in the right lower quadrant which could be the terminal ileum. Patient started on IV steroid yesterday. Her pain is much better. Repeat KUB: No significant change. Bowel movement is slow and ileus is also a possibility. Continue medical management. Continue NGT. Dr. Escalona to follow tomorrow. Continue IV antibiotics.
--- NOTE | 2021-01-18 18:06 | P.PN ---
Subjective Date of Service: 01/18/21 Chief Complaint: pSBO, SANTOSH pain, N/V, bloating, h/o adhesions versus Crohn's or other Subjective: Improving (She has noticeably less SANTOSH pain, nausea, fatigue today. No stools / flatus. KUB this morning not improved.) Review of Systems 10-point ROS is otherwise unremarkable General: Weakness (Improved) Gastrointestinal: Nausea (Improved.), Abdominal Pain (Improved.) Physical Examination - Vital Signs Temperature: 98.9 F Blood Pressure: 117/69 Pulse: 67 Respirations: 16 Pulse Ox (%): 99 - Physical Exam General: Alert, In no apparent distress, Oriented x3 HEENT: Atraumatic, Normocephalic, PERRLA, EOMI Neck: Supple Cardiovascular: Normal pulses Gastrointestinal: No rebound, Tenderness (Improved in the SANTOSH area), Guarding (Improved.) Neurological: Normal speech, Normal strength at 5/5 x4 extr Assessment And Plan - Current Problems (Diagnosis) (1) Epigastric abdominal pain Current Visit: Yes Status: Acute Comment: Improved. (2) Nausea & vomiting Current Visit: Yes Status: Acute Comment: Improved. (3) Abnormal CT of the abdomen Current Visit: Yes Status: Acute (4) SBO (small bowel obstruction) Current Visit: Yes Status: Acute - Plan REC: 1) Continue NGT to LWIS 2) continue IVFs 3) continue IV steroids 4) check Prom[facility] serologies 5) consider colonoscopy, EGD, small bowel evaluation
[2021-01-19] MEDS: Ringers Lactate 1,000 ML IV SCH ×4 (00:16→17:15)
[2021-01-19] MEDS: METHYLPREDNISOLONE 40 MG INJ IV SCH ×3 (00:16→16:58)
[2021-01-19] MEDS: METRONIDAZOLE 500mg IVPB 500 MG/100 ML BAG IV SCH ×3 (00:16→16:58)
[2021-01-19] MEDS: CEPACOL LOZENGES PO PRN ×3 (06:04→16:59)
[2021-01-19 06:18] LABS: Absolute Lymphocytes (CBC) 0.5 K/uL (0.7-4.9); Basophils % 0.2 % (0-1.3); Hematocrit 35.1 % (36.0-45.0); Lymphocytes % 4.3 % (15.3-44.8); MPV 8.6 fL (7.6-11.3); RBC Red Blood Cell Count 3.93 M/uL (3.86-4.86)
[2021-01-19 06:26] LABS: BUN Blood Urea Nitrogen 12 mg/dL (7-18); Bicarbonate 25 mmol/L (21-32); Glucose Level 127 mg/dL (74-106); Potassium 3.6 mmol/L (3.5-5.1); Sodium Level 142 mmol/L (136-145)
--- NOTE | 2021-01-19 07:36 | RAD REPORT ---
EXAM DESCRIPTION: RAD - Abdomen 1 View (KUB) - 01/19/2021 5:36 am CLINICAL HISTORY: sbo COMPARISON: Abdomen 1 View (KUB) dated 01/18/2021; Abdomen 1 View (KUB) dated 01/17/2021 FINDINGS: NG/OG tube remains in place. Tip is in the antrum or duodenal bulb. Minimal amount of air is present in the colon. Moderate stool volume seen throughout the colon. Colon is redundant. Small b owel loops have decreased in prominence since comparison study. No free air or pneumatosis have developed. No worrisome interval changes. IMPRESSION: Small bowel gas pattern has decreased in prominence since prior day imaging. Moderate st ool volume scattered in nondilated colon. NG/ OG tube remains in good position with only a small amount of air remaining in the stomach.
[2021-01-19] MEDS ORDERED: POTASSIUM PHOS 20 MM in NA CHLORIDE 0.9% 500 ML IV ONE (09:00)
[2021-01-19] MEDS: CIPROFLOXACIN 400mg IV 400 MG/200 ML BAG IV SCH ×2 (09:23→21:22)
--- NOTE | 2021-01-19 11:11 | CON ---
Date of Consultation: 01/19/2021 Reason For Consultation: Small bowel obstruction. History Of Present Illness: The patient is a 40-year-old female, who came to the emergency room on t he 15 with nausea and vomiting. She had partial small bowel obstruction for quite some time. This is the 6th episode. Last April, she had biliary colic and she had gallstone and underwent a lap aroscopic cholecystectomy, at which time, there were no adhesions seen. She was admitted with small bowel obstruction and NG tube was placed, and she was started on IV antibiotics and steroids. GI con sultation was obtained and I was consulted. She is awake, alert, is passing gas. No nausea or vomit ing. No sore throat, runny nose, cough, headaches, or dizziness. No chest pain. No fever or chills . Review of Systems: Otherwise unremarkable. Past Medical History: Depression. Past Surgical History: Cholecystectomy and C-sections x3. Allergies: NO ALLERGIES. Social History: The patient does not smoke. Does not drink alcohol. Family History: Noncontributory. Physical Examination: Vital Signs: Her vital signs are stable. She is afebrile. General: She is awake, alert, and oriented x3. Head and Neck: Cranial nerves 2 through 12 are grossly within normal limits. No neck masses. No JV D. Throat clear. Neck is supple. Chest: Clear. Heart: S1 and S2. Abdomen: Soft, nondistended. Positive bowel sounds. Nontender. No peritonitis. Extremity: Adequately perfused. Nontender. Neuro: Nonfocal. Laboratory Data: White count is 11.4 with a left shift, could be because of the steroids also. Chem istry reviewed. CT of the abdomen and pelvis reviewed, which was done 2 nights ago, showed small bow el was dilated up to 6.3 cm with air-fluid levels. This is suggestive of ileus or partial bowel obst ruction. There is suggestion of a short segment of bowel wall thickening involving the small bowel. Her abdominal x-ray done today shows small bowel gas pattern and decreased in prominence since the day imaging and moderate stool volume scattered in nondilated colon. Assessment: Small bowel obstruction, partial likely rule out Crohn disease. Recommendations: Continue steroids and antibiotics. GI follow up. Will need a colonoscopy and shou ld that workup be negative, then may benefit from surgical intervention. We will follow this patient while in the hospital. We will start the patient on clear liquids today. THERON/DEMETRIO Voice ID: [id number] Report ID: [id number]
--- NOTE | 2021-01-19 11:24 | P.PN ---
Subjective Date of Service: 01/19/21 Chief Complaint: pSBO, SANTOSH pain, N/V, bloating, h/o adhesions versus Crohn's or other Patient reports feeling much better today. She stated she is passing gas. NG tube is clamped. She does report some abdominal pain. Physical Examination - Vital Signs Temperature: 97.1 F Blood Pressure: 120/80 Pulse: 66 Respirations: 18 Pulse Ox (%): 98 - Physical Exam General: Alert, In no apparent distress HEENT: Mucous membr. moist/pink Neck: JVD not distended Respiratory: Clear to auscultation bilaterally, Normal air movement Cardiovascular: No edema, Regular rate/rhythm, Normal S1 S2 Gastrointestinal: Normal bowel sounds, Soft and benign, Non-distended, No tenderness Musculoskeletal: No swelling Integumentary: No rashes Neurological: Normal strength at 5/5 x4 extr Assessment And Plan - Current Problems (Diagnosis) (1) SBO (small bowel obstruction) Current Visit: Yes Status: Acute - Plan There is a concern for inflammatory bowel disease given the findings of thickened section small-bowel wall in the right lower quadrant which could be the terminal ileum. Continue IV steroid. Her pain is much better. Repeat KUB: Shows some improvement in bowel dilatation. Dr. Escalona input appreciated. Continue medical management. Start clear liquid today and the patient tolerates, remove the NGT. Continue IV antibiotics. Increase activity as tolerated. Patient may need colonoscopy and endoscopy as outpatient to evaluate for inflammatory bowel disease.
--- NOTE | 2021-01-19 12:34 | P.PN ---
Subjective Date of Service: 01/19/21 Chief Complaint: pSBO, SANTOSH pain, N/V, bloating, h/o adhesions versus Crohn's or other Subjective: Improving (Feels much better. +stool now. Tolerating clear liquid diet. NG tube still in place. Much less SANTOSH pain, and no significant N/V with much less bloating. Surgery awaiting possible IBD evaluation / work-up.) Review of Systems General: Weakness (Improved.), Malaise (Improved.) Gastrointestinal: Nausea (Improved.), Abdominal Pain (Improved.) Physical Examination - Vital Signs Temperature: 97.1 F Blood Pressure: 120/80 Pulse: 66 Respirations: 18 Pulse Ox (%): 98 - Physical Exam General: Alert, In no apparent distress, Oriented x3, Cooperative HEENT: Atraumatic, Normocephalic, PERRLA, EOMI Neck: Supple Respiratory: Normal air movement Cardiovascular: Normal pulses Gastrointestinal: No rebound, No guarding, Distended (bloating mild ), Tenderness (Mild) Neurological: Normal speech, Normal strength at 5/5 x4 extr Assessment And Plan - Current Problems (Diagnosis) (1) Epigastric abdominal pain Current Visit: Yes Status: Acute Comment: Improved. (2) Nausea & vomiting Current Visit: Yes Status: Acute Comment: Improved. (3) Abnormal CT of the abdomen Current Visit: Yes Status: Acute (4) SBO (small bowel obstruction) Current Visit: Yes Status: Acute - Plan REC: 1) CLs to FLs as tolerated 2) continue IVFs 3) continue IV steroids 4) await [facility] serologies 5) colonoscopy, EGD after SBO has resolved adequately -> probably next week as outpatient 6) would discharge on Cipro/Flagyl for 10 days and Prednisone 20 mg po bid with taper (10 mg per week) 7) GI clinic f/u
[2021-01-19] MEDS ORDERED: PHENOL 1.4% ORAL SPRAY 180ML MM PRN (13:41)
[2021-01-20] MEDS: METHYLPREDNISOLONE 40 MG INJ IV SCH ×2 (00:09→08:37)
[2021-01-20] MEDS: METRONIDAZOLE 500mg IVPB 500 MG/100 ML BAG IV SCH ×2 (00:09→08:36)
[2021-01-20] MEDS: Ringers Lactate 1,000 ML IV SCH ×2 (00:09→08:38)
[2021-01-20 06:26] LABS: BUN Blood Urea Nitrogen 11 mg/dL (7-18); Bicarbonate 26 mmol/L (21-32); Glucose Level 121 mg/dL (74-106); Phosphorus 2.5 mg/dL (2.5-4.9); Potassium 3.7 mmol/L (3.5-5.1); Sodium Level 142 mmol/L (136-145)
[2021-01-20] MEDS: CIPROFLOXACIN 400mg IV 400 MG/200 ML BAG IV SCH (08:36)
[2021-01-20] MEDS ORDERED: POTASSIUM CL SA 10 MEQ TAB PO ONE (09:00)
[2021-01-20] MEDS ORDERED: Ringers Lactate 1,000 ML IV SCH (09:03)
[2021-01-20 09:39] VITALS: BP 142/76; TEMP 97
[2021-01-20 10:50] VITALS: O2SAT 98
--- NOTE | 2021-01-20 12:51 | PN ---
Date of Progress Note: 01/20/2021 Subjective: The patient is awake, alert, passing gas, tolerating clear liquids. No nausea or vomiti ng. Objective: Vital signs: Stable, afebrile. Abdomen: Benign. Assessment: Small bowel obstruction, appears to be resolved, rule out Crohn disease. Recommendations: I will DC the NG tube and if diet tolerated advance and cleared from surgical stand point for discharge. Follow up with GI as an outpatient for inflammatory bowel disease workup. Will be discharged on antibiotics and tapering of the steroids. /MODL Voice ID: [id number] Report ID: [id number]
--- NOTE | 2021-01-20 12:55 | P.DS ---
Admission Date: 01/17/21 Discharge Date: 01/20/21 Disposition: ROUTINE DISCHARGE Discharge Condition: FAIR Reason for Admission: pSBO, SANTOSH pain, N/V, bloating, h/o adhesions versus Crohn's or other - Problems (1) SBO (small bowel obstruction) Current Visit: Yes Status: Acute Brief History of Present Illness: 40-year-old woman presented to the emergency department with a complaint of sudden onset of abdominal pain rated at 10/10, no vomiting. CT done in the emergency department demonstrated small bowel obstruction. Patient had multiple SBO in the past. She was following with Dr. Escalona will suspecting adhesions. She had a cholecystectomy done in May 2020. Patient was hospitalized for further management. Hospital Course: Patient admitted to the medical floor. Started on supportive measures with IV fluid and IV opioids p.r.n. for pain. NG-tube to suction was inserted. She was seen by general surgery-Dr. Taveras and Dr. Escalona. There was concern for Crohn's disease given CT abdomen reporting bowel wall thickening in the right lower quadrant which could be the terminal ileum. Patient started on IV stero id. She was seen by GI-Dr. Key who recommended endoscopies as outpatient. Patient bowel obstruction resolved. She passed gas and tolerated diet advancement to soft diet. She states her abdominal pain is almost resolved. Patient has clinically improved. She is deemed stable for discharge per Dr. Escalona. She is prescribed oral Flagyl and ciprofloxacin as well as a prednisone taper. She will follow with Dr. Key for arrangement for endoscopies. Vital Signs/Physical Exam: Temp Pulse Resp BP Pulse Ox 97 F 51 18 142/76 H 99 01/20/21 08:00 01/20/21 08:00 01/20/21 08:00 01/20/21 08:00 01/20/21 08:00 General: Alert, In no apparent distress, Oriented x3 HEENT: Mucous membr. moist/pink Neck: JVD not distended Respiratory: Clear to auscultation bilaterally, Normal air movement Cardiovascular: No edema, Regular rate/rhythm, Normal S1 S2 Gastrointestinal: Normal bowel sounds, Soft and benign, Non-distended, No tenderness Musculoskeletal: No swelling Integumentary: No rashes Neurological: Normal strength at 5/5 x4 extr Laboratory Data at Discharge: WBC 11.40 K/uL (4.3-10.9) H 01/19/21 05:54 Hgb 12.2 g/dL (12.0-15.0) 01/19/21 05:54 Hct 35.1 % (36.0-45.0) L 01/19/21 05:54 Plt Count 270 K/uL (152-406) 01/19/21 05:54 Sodium 142 mmol/L (136-145) 01/20/21 05:12 Potassium 3.7 mmol/L (3.5-5.1) 01/20/21 05:12 BUN 11 mg/dL (7-18) 01/20/21 05:12 Creatinine 0.56 mg/dL (0.55-1.3) 01/20/21 05:12 Glucose 121 mg/dL (74-106) H 01/20/21 05:12 Phosphorus 2.5 mg/dL (2.5-4.9) 01/20/21 05:12 Magnesium Cancelled 01/18/21 08:43 Total Bilirubin Cancelled 01/18/21 08:43 AST Cancelled 01/18/21 08:43 ALT Cancelled 01/18/21 08:43 Alkaline Phosphatase Cancelled 01/18/21 08:43 Triglycerides 99 mg/dL (<150) 01/17/21 09:27 Cholesterol 223 mg/dL (<200) H 01/17/21 09:27 HDL Cholesterol 77 mg/dL (40-60) H 01/17/21 09:27 Cholesterol/HDL Ratio 2.90 01/17/21 09:27 Lipase 114 U/L (73-393) 01/17/21 01:13 Home Medications: Escitalopram [Lexapro*] 20 mg PO DAILY 04/13/20 Ciprofloxacin HCl [Cipro 500 MG Tablet] 500 mg PO BID #14 tab 01/20/21 metroNIDAZOLE [Flagyl] 500 mg PO Q8H #21 tablet 01/20/21 predniSONE [Prednisone] 20 mg PO DAILY #43 tablet 01/20/21 New Medications: Ciprofloxacin HCl [Cipro 500 MG Tablet] 500 mg PO BID #14 tab metroNIDAZOLE [Flagyl] 500 mg PO Q8H #21 tablet predniSONE [Prednisone] 20 mg PO DAILY #43 tablet Diet: Regular (Start with soft diet and advance as tolerated.) Activity: Ad girish Followup: Harsha Key MD [Primary Care Provider] - 1-2 Weeks Time spent managing pt's care (in minutes): 37
--- NOTE | 2021-01-20 13:50 | RAD REPORT ---
EXAM DESCRIPTION: RAD - Small Bowel Series - 01/20/2021 1:42 pm CLINICAL HISTORY: SBO Abdominal pain COMPARISON: Abdomen Pelvis W Contrast dated 01/17/2021 FINDINGS: [employer] film shows a nonspecific bowel gas pattern. No obstruction or free air. No suspiciou s calcifications. Gastric size and mucosal fold pattern are normal. No delay in transit of contrast into the small walt l. There is [id number] thickening involving a loop of the distal ileum. No intrinsic or extrins ic mass identifiable. Transit time to the colon is normal. No fluoroscopy was performed. Total images acquired: 13 IMPRESSION: No bowel obstruction is evident. Transit time from stomach to colon is within normal peters its. Moderate thickening of a loop of the distal ileum is seen which could indicate inflammation or infect ion.
== END 2021-01-20 15:29 | disposition home or self-care (01) | DRG 387 ==
LOC: ER 00:37 → ERHOLD 04:41 → 2ND 08:17
PROVIDERS: ADMIT Internal Medicine; ATTEND Internal Medicine
DX: K50.012 Crohn's disease of small intestine with intestinal obstruction (principal); F32.9 Major depressive disorder, single episode, unspecified; Z20.822 Contact with and (suspected) exposure to COVID-19
CPT/HCPCS: 36415; 74018; 74177; 74250; 80048; 80053; 80061; 80076; 81003; 81015; 81025; 83690; 83735; 84100; 84439; 84443; 85025; 87077; 87086; 87088; 87186; 94760; 96361; 96374; 96375; 99285; J0360; J0744; J2405; J2920; J3480; J7030; J7040; J7120; Q9967; U0003

== ENCOUNTER 2021-12-03 18:26 | Emergency (ER) | payer BC ==
[2021-12-03] MEDS ORDERED: FAMOTIDINE 20 MG/2 ML VIAL IV ONE (20:11)
[2021-12-03] MEDS ORDERED: ONDANSETRON 4 MG/2 ML VIAL ONE (20:11)
[2021-12-03] MEDS ORDERED: NA CHLORIDE 0.9% 1,000 ML ONE (20:11)
[2021-12-03] MEDS ORDERED: MORPHINE 4 MG/ML SYR ONE (20:11)
[2021-12-03 20:18] LABS: Absolute Lymphocytes (CBC) 1.7 K/uL (0.7-4.9); Hematocrit 37.4 % (36.0-45.0); Lymphocytes % 18.2 % (15.3-44.8); MPV 7.8 fL (7.6-11.3); RBC Red Blood Cell Count 4.55 M/uL (3.86-4.86)
[2021-12-03 20:25] LABS: Urine Blood Trace-intact (Negative); Urine Glucose Negative (Negative); Urine Protein Negative (Negative)
[2021-12-03 20:34] LABS: Bilirubin Total 0.6 mg/dL (0.2-1.0); Potassium 3.8 mmol/L (3.5-5.1); Protein, Total 7.5 g/dL (6.4-8.2)
--- NOTE | 2021-12-03 20:48 | RAD REPORT ---
EXAM DESCRIPTION: CT - Abdomen Pelvis Wo Contrast - 12/03/2021 8:41 pm CLINICAL HISTORY: Abdominal pain. Abdominal pain, acute, nonlocalized COMPARISON: Abdomen Pelvis W Contrast dated 01/17/2021 TECHNIQUE: CT imaging of the abdomen and pelvis was performed without contrast. Solid organ, bowel a nd vascular assessment is limited due to lack of IV and oral contrast. All CT scans are performed using dose optimization technique as appropriate and may include automated exposure control or mA/KV adjustment according to patient size. FINDINGS: The lower lung robin are clear.Cholecystectomy clips. The liver, spleen, pancreas, adrenal glands and kidneys are within normal limits for a limited non-co ntrast examination. Mildly prominent fluid and stool filled small bowel loops are present in the central abdomen. Fecal r etention also noted the colon. No free air, free fluid or abscess. The appendix is normal. The osseous structures are within normal limits. IMPRESSION: Mildly dilated fluid and stool filled small bowel loops and moderate fecal retention thr oughout the colon. This may be related to ileus/ significant constipation. A limited non-contrast examination was performed as detailed.
--- NOTE | 2021-12-03 21:56 | EDPHYS ---
Physician Documentation [facility] Name: Eros Craft Age: 40 yrs Sex: Female : 1980 Arrival Date: 12/03/2021 Time: 18:29 Bed Treatment Private MD: Talib Garcia HPI: 12/03 19:44 This 40 yrs old Female presents to ER via Ambulatory with complaints of jmm Abdominal Pain. 19:44 The patient presents with abdominal pain that is diffuse. jmm 19:44 The symptoms do not radiate. jmm 19:44 Associated signs and symptoms: Pertinent negatives: nausea and vomiting, diarrhea. The jmm symptoms are described as sharp. Modifying factors: The symptoms are alleviated by nothing, the symptoms are aggravated by nothing. The patient has experienced similar episodes in the past. 21:51 Onset: The symptoms/episode began/occurred acutely. jmm Historical: - Allergies: 19:00 SHELLFISH; aa5 - PMHx: 19:00 Anxiety; aa5 - PSHx: 19:00 Cholecystectomy; section; aa5 - Immunization history:: Adult Immunizations unknown. - Social history:: Smoking status: Patient denies any tobacco usage or history of. ROS: 19:44 Constitutional: Negative for fever, chills, and weight loss, Cardiovascular: Negative jmm for chest pain, palpitations, and edema, Respiratory: Negative for shortness of breath, cough, wheezing, and pleuritic chest pain. 19:44 Abdomen/GI: Positive for abdominal pain. 19:44 All other systems are negative. Exam: 19:44 Constitutional: This is a well developed, well nourished patient who is awake, alert, jmm and in no acute distress. Head/Face: atraumatic. Eyes: EOMI, no conjunctival erythema appreciated ENT: Moist Mucus Membranes Neck: Trachea midline, Supple Chest/axilla: Normal chest wall appearance and motion. Cardiovascular: Regular rate and rhythm. No edema appreciated Respiratory: Normal respirations, no respiratory distress appreciated 19:44 Back: Normal ROM Skin: General appearance color normal MS/ Extremity: Moves all extremities, no obvious deformities appreciated, no edema noted to the lower extremities Neuro: Awake and alert Psych: Behavior is normal, Mood is normal, Patient is cooperative and pleasant 19:44 Abdomen/GI: Inspection: abdomen appears normal, Bowel sounds: normal, Palpation: soft, moderate abdominal tenderness, in all quadrants. Vital Signs: 19:01 BP 139 / 99; Pulse 68; Resp 18 S; Temp 99.0(O); Pulse Ox 100% on R/A; Weight 77.56 kg aa5 (R); Height 5 ft. 2 in. (157.48 cm) (R); 19:01 Body Mass Index 31.28 (77.56 kg, 157.48 cm) aa5 MDM: 19:44 Patient medically screened. [facility] 21:53 Data reviewed: vital signs, nurses notes. Counseling: I had a detailed discussion with juana the patient and/or guardian regarding: the historical points, exam findings, and any diagnostic results supporting the discharge/admit diagnosis, lab results, radiology results, the need for outpatient follow up, to return to the emergency department if symptoms worsen or persist or if there are any questions or concerns that arise at home. ED course: I discussed the patient with Dr. Escalona whom recommended miralax, fiber, clear liquids. Does not recommend admission. I discussed the patient with Dr. Key whom will see the patient in clinic tmrw. . 12/03 19:54 Order name: CBC with Diff; Complete Time: 20:25 [facility] 12/03 19:54 Order name: CMP; Complete Time: 20:34 [facility] 12/03 19:54 Order name: Lipase; Complete Time: 20:34 [facility] 12/03 19:54 Order name: CT Abd/Pelvis - Without Contrast; Complete Time: 20:58 [facility] 12/03 20:26 Order name: Urine Dipstick-Ancillary; Complete Time: 20:29 [facility] 12/03 20:28 Order name: Urine --Ancillary (enter results); Complete Time: 20:58 [facility] 12/03 19:54 Order name: IV Saline Lock; Complete Time: 20:13 [facility] 12/03 19:54 Order name: Labs collected and sent; Complete Time: 20:13 [facility] 12/03 19:54 Order name: Urine Dipstick-Ancillary (obtain specimen); Complete Time: 20:27 [facility] 12/03 19:54 Order name: Urine Test (obtain specimen); Complete Time: 20:27 [facility] Administered Medications: 20:15 Drug: NS 0.9% 1000 ml Route: IV; Rate: 1 bolus; Site: left antecubital; ab2 22:12 Follow up: Response: No adverse reaction; IV Status: Order to discontinue infusion; IV jb4 Intake: 500ml 20:15 Drug: Pepcid (famotidine) 20 mg Route: IVP; Site: left antecubital; ab2 22:12 Follow up: Response: No adverse reaction jb4 20:15 Drug: Zofran (Ondansetron) 4 mg Route: IVP; Site: left antecubital; ab2 22:12 Follow up: Response: No adverse reaction; Marked relief of symptoms jb4 20:16 Drug: morphine 4 mg Route: IVP; Site: left antecubital; ab2 22:12 Follow up: Response: No adverse reaction; Marked relief of symptoms jb4 21:47 Not Given (Patient Refused): NS 0.9% 1000 ml IV at 1 bolus Per protocol; 1000 mL bolus jb4 Disposition Summary: 12/03/21 21:55 Discharge Ordered Location: Home [facility] Condition: Stable jm Diagnosis - Abdominal pain, Generalized jmm Followup: [facility] - With: Harsha Key MD - When: Tomorrow - Reason: Recheck today's complaints, Continuance of care, Re-evaluation by your physician, Please arrive at 130 pm tomorrow Discharge Instructions: - Discharge Summary Sheet jm - Abdominal Pain, Adult jmm Forms: - Medication Reconciliation Form [facility] - Thank You Letter [facility] - Antibiotic Education [facility] - Prescription Opioid Use [facility] Signatures: Dispatcher [employer] Talib Cronin MD MD cha Mickail, Joel, PA PA jmm Calderon, Audri, RN RN aa5 Harry Ochoa2 Raad Choi RN jb4 Corrections: (The following items were deleted from the chart) 21:52 21:51 Onset: The symptoms/episode began/occurred acutely, juana arias
--- NOTE | 2021-12-03 21:56 | ER ---
Nurse's Notes [facility] Name: Eros Craft Age: 40 yrs Sex: Female : 1980 Arrival Date: 12/03/2021 Time: 18:29 Bed Treatment Private MD: Diagnosis: Abdominal pain, Generalized Presentation: 12/03 19:01 Chief complaint: Patient states: generalized abd pain that began last weekend and went aa5 away and came back yesterday. Pt also reports nausea. Coronavirus screen: At this time, the client does not indicate any symptoms associated with coronavirus-19. Ebola Screen: No symptoms or risks identified at this time. Initial Sepsis Screen: Does the patient meet any 2 criteria? No. Patient's initial sepsis screen is negative. Does the patient have a suspected source of infection? No. Patient's initial sepsis screen is negative. Risk Assessment: Do you want to hurt yourself or someone else? Patient reports no desire to harm self or others. Onset of symptoms was November 2021. 19:01 Acuity: GREGORY 3 aa5 19:01 Method Of Arrival: Ambulatory aa5 Historical: - Allergies: 19:00 SHELLFISH; aa5 - PMHx: 19:00 Anxiety; aa5 - PSHx: 19:00 Cholecystectomy; section; aa5 - Immunization history:: Adult Immunizations unknown. - Social history:: Smoking status: Patient denies any tobacco usage or history of. Screenin:11 Abuse screen: Denies threats or abuse. Nutritional screening: No deficits noted. jb4 Tuberculosis screening: No symptoms or risk factors identified. Fall Risk None identified. Assessment: 20:13 General: Appears in no apparent distress. uncomfortable, Behavior is calm, cooperative, jb4 appropriate for age. Pain: Complains of pain in abdomen Pain does not radiate. Pain currently is 8 out of 10 on a pain scale. Neuro: Level of Consciousness is awake, alert, obeys commands, Oriented to person, place, time, situation. Cardiovascular: Patient's skin is warm and dry. Respiratory: Airway is patent Respiratory effort is even, unlabored, Respiratory pattern is regular, symmetrical. GI: Abdomen is round non-distended, Abd is soft X 4 quads Abdomen is tender to palpation X 4 quads. : No signs and/or symptoms were reported regarding the genitourinary system. EENT: No signs and/or symptoms were reported regarding the EENT system. Derm: Skin is intact, Skin is pink, warm \T\ dry. Musculoskeletal: Circulation, motion, and sensation intact. Range of motion: intact in all extremities. 21:30 Reassessment: Patient appears in no apparent distress at this time. Patient and/or jb4 family updated on plan of care and expected duration. Pain level reassessed. Patient is alert, oriented x 3, equal unlabored respirations, skin warm/dry/pink. 22:11 Reassessment: Patient appears in no apparent distress at this time. Patient and/or jb4 family updated on plan of care and expected duration. Pain level reassessed. Patient is alert, oriented x 3, equal unlabored respirations, skin warm/dry/pink. Vital Signs: 19:01 BP 139 / 99; Pulse 68; Resp 18 S; Temp 99.0(O); Pulse Ox 100% on R/A; Weight 77.56 kg aa5 (R); Height 5 ft. 2 in. (157.48 cm) (R); 19:01 Body Mass Index 31.28 (77.56 kg, 157.48 cm) aa5 ED Course: 18:29 Patient arrived in ED. am2 19:00 Arm band placed on. aa5 19:02 Triage completed. aa5 19:33 Raad Choi, RG is Primary Nurse. jb4 19:38 Pal Hennessy PA is PHCP. [facility] 19:38 Talib Baker MD is Attending Physician. jm 20:11 Initial lab(s) drawn, by il, sent to lab. Inserted saline lock: 18 gauge in left jb4 antecubital area, using aseptic technique. Blood collected. 20:43 CT Abd/Pelvis - Without Contrast In Process Unspecified. EDMS 21:54 Harsha Key MD is Referral Physician. jmm 22:11 Patient has correct armband on for positive identification. jb4 22:11 No provider procedures requiring assistance completed. IV discontinued, intact, jb4 bleeding controlled, No redness/swelling at site. Pressure dressing applied. Administered Medications: 20:15 Drug: NS 0.9% 1000 ml Route: IV; Rate: 1 bolus; Site: left antecubital; ab2 22:12 Follow up: Response: No adverse reaction; IV Status: Order to discontinue infusion; IV jb4 Intake: 500ml 20:15 Drug: Pepcid (famotidine) 20 mg Route: IVP; Site: left antecubital; ab2 22:12 Follow up: Response: No adverse reaction jb4 20:15 Drug: Zofran (Ondansetron) 4 mg Route: IVP; Site: left antecubital; ab2 22:12 Follow up: Response: No adverse reaction; Marked relief of symptoms jb4 20:16 Drug: morphine 4 mg Route: IVP; Site: left antecubital; ab2 22:12 Follow up: Response: No adverse reaction; Marked relief of symptoms jb4 21:47 Not Given (Patient Refused): NS 0.9% 1000 ml IV at 1 bolus Per protocol; 1000 mL bolus jb4 Intake: 22:12 IV: 500ml; Total: 500ml. jb4 Outcome: 21:55 Discharge ordered by . juana 22:11 Discharged to home ambulatory. jb4 22:11 Condition: stable 22:11 Discharge instructions given to patient, Instructed on discharge instructions, follow up and referral plans. Demonstrated understanding of instructions, follow-up care. 22:12 Patient left the ED. jb4 Signatures: Dispatcher [employer] EDMS Pal Hennessy PA PA jmm Calderon, Audri RN RN aa5 Raad Choi RN RN jb4 Casie Jo am2 Harry Ochoa ab2
[2021-12-03 22:41] VITALS: BP 139/99; TEMP 99; O2SAT 100
== END 2021-12-03 22:12 | disposition home or self-care (01) ==
LOC: ER 18:26
DX: R10.84 Generalized abdominal pain (principal); Z91.013 Allergy to seafood
CPT/HCPCS: 96361; 85025; 36415; 81025; 81003; 83690; 80053; 74176; 96375; 96374; 99284; J7030; J2405; J3490

== ENCOUNTER 2024-08-17 10:54 | Inpatient (IN) | payer BC ==
--- OUTSIDE RECORDS SUMMARY | 2024-08-17 11:31 | XMS REPORT | Continuity of Care Document ---
Author Name Unknown Address [address] [facility] [address] thconnect Address [address] [facility] [address] [place] [address] Care Team Providers Care Hosiery Pairer Name Role Phone Fred Fatima Attending Clinician Unavailable Fred Fatima Admitting Clinician Unavailable Payers Payer Name Policy Type Policy Number Effective Date Expirati on Date Source Allergies, Adverse Reactions, Alerts Allergy Name Allergy Type Status Severity Reaction(s) Onset Date Inactive Date Treating Clinician Comments Source No Known Allergie s DA Active U 12-30 00:00: 00 [facility] shellfis h derived FA Active U hives and occluded airway 02-22 00:00: 00 [facility] No Known Intolera nces DA Active U NONE 01-20 00:00: 00 [facility] Encounters Start Date/Time End Date/Time Encounter Type Admission Type Attending Clinicians Care Facility Care Department Encounter ID Source 2024-01-13 05:27:00 2024-01-14 10:58:00 Inpatient Fred Lyle [facility]01 [id number] [address] [facility] Results Test Description Test Time Test Comments Results Result Co mments Source HGB [id number] 05:18:00* Test Item Value Reference Range Interpretation Comme nts HEMOGLOBIN (test code = HGB) 11.6 g/dL 10.1-13.8 N HEMATOCRIT (test code = HCT) 34.5 % 32.5-41.8 N UR HCG [id number] 06:13:00* Test Item Value Reference Range Interpretation Comme nts UR HCG QUAL (test code = HCGQLU) NEGATIVE 1. Very dilute u rine specimens, as indicated by a lowspecific gravity, may not contain aircraft sales representative levels ofhCG. 2. False negative results may occur when the levels of hCGare below the sensitivity level of the test. If is still suspected, a first morningurine specimen should be collected 48 hours later andtested. AB HIV 1 17:43:00* Test Item Value Reference Range Interpretation Comme nts AB HIV 1 2 (test code = AWR28NH) NONREACTIVE NONREACTIVE Done by [employer] 4th Gen HIV Ag/Ab Combo Screen BASIC METABOLIC [id number] 13:30:00* Test Item Value Reference Range Interpretation Comme nts SODIUM (test code = NA) 138 mEq/L 136-145 N POTASSIUM (test code = K) 4.0 mEQ/L 3.4-4.5 N Please note new normal range as of December 2023 CHLORIDE (test code = CL) 107 mEq/L 98-107 N Please note new normal range as of December 2023 CARBON DIOXIDE (test code = CO2) 28 mEq/L 22-31 N ANION GAP (test code = GAP) 7.0 10-20 L GLUCOSE (test code = GLU) 78 mg/dL 74-106 N Please note new normal range as of December 2023 BLOOD UREA NITROGEN (test code = BUN) 13 mg/dL 8-23 N Please note ne w normal range as of December 2023 CREATININE (test code = CREAT) 1 mg/dL 0.55-1.02 N Please note new normal range as of December 2023 CALCIUM (test code = CA) 9.6 mg/dL 8.3-10.6 N Please note new normal range as of December 2023 GLOMERULAR FILTRATION RATE (test code = GFR) 71.24 ml/min >60 N The Glomerular Filtration Rate is a calculated parameterbased on serum Creatinine, patient age and sex. GFR valuesless than 60 mL/min/1.73 square meters are indicative ofChronic Kidney Disease. Values less than 15 mL/min/1.73square meters indicate Kidney failure. The calculation forGFR is based on the CKD-EPI (2020) calculation. This formulais race indifferent and is the recommended formula for GFRby the National Kidney Foundation for Adults.The GFR will not calculate if the sex is unknown or if thepatient's age is <18 years. HCG SERUM [id number] 13:30:00* Test Item Value Reference Range Interpretation Comme nts HCG SERUM QUAL (test code = HCGQL) NEGATIVE URINALYSIS [id number] 13:21:00* Test Item Value Reference Range Interpretation Comme nts UA COLOR (test code = COLU) YELLOW YELLOW UA APPEARANCE (test code = APPU) Slightly-Cloudy CLEAR UA GLUCOSE DIPSTICK (test code = DGLUU) NEGATIVE NEG UA BILIRUBIN DIPSTICK (test code = BILU) NEGATIVE NEG UA KETONE DIPSTICK (test cod e = KETU) TRACE NEG A UA SPECIFIC GRAVITY (test code = SGU) 1.019 1.001-1.035 N UA BLOOD DIPSTICK (test code = RITESH) 1+ NEG A UA PH DIPSTICK (test code = SHERWIN) 5.0 5-9 UA PROTEIN DIPSTICK (test code = PROU) NEGATIVE NEG UA UROBILINIOGEN DIPSTICK (test code = URO) NEGATIVE mg/dL NEG UA NITRITE DIPSTICK (test code = TRACY) NEG NEG UA LEUKOCYTE ESTERASE DIPSTICK (test code = LEUU) NEG NEG UA WBC (test code = WBCU) 0-2 #/hpf NONE SEEN UA RBC (test code = RBCU) 3-5 #/hpf NONE SEEN A UA EPITHELIAL CELLS (test code = EPIU) RARE #/HPF RARE-FEW UA MUCUS (test code = MUCU) 1+ NONE SEEN URINE SAMPLE: CLEAN CATCHCBC W/AUTO [id number] 12:44:00* Test Item Value Reference Range Interpretation Comme nts WHITE BLOOD CELL (test code = WBC) 3.8 K/mm3 6.5-12.3 L RED BLOOD CELL (test code = RBC) 4.43 M/mm3 3.51-4.69 N HEMOGLOBIN (test code = HGB) 13.5 g/dL 10.1-13.8 N HEMATOCRIT (test code = HCT) 40.5 % 32.5-41.8 N MEAN CELL VOLUME (test code = MCV) 91.4 fL 84.6-96.6 N MEAN CELL HGB (test code = MCH) 30.5 pg 27.3-33.9 N MEAN CELL HGB CONCETRATION ( test code = MCHC) 33.3 gm/dL 32.0-34.2 N RED CELL DISTRIBUTION WIDTH (test code = RDW) 12.5 % 12.2-16.3 N PLATELET COUNT (test code = PLT) 317 K/mm3 134-363 N MEAN PLATELET VOLUME (test c ode = MPV) 10.1 fL 9.2-12.7 N NEUTROPHIL % (test code = NT%) 59.2 % 57.9-77.3 N LYMPHOCYTE % (test code = LY%) 29.2 % 14.5-29.7 N MONOCYTE % (test code = MO%) 8.4 % 3.6-10.2 N EOSINOPHIL % (test code = EO%) 1.6 % 0.0-3.0 N BASOPHIL % (test code = BA%) 1.3 % 0.1-0.9 H NEUTROPHIL # (test code = NT#) 2.3 K/mm3 LYMPHOCYTE # (test code = LY#) 1.1 K/mm3 MONOCYTE # (test code = MO#) 0.3 K/mm3 EOSINOPHIL # (test code = EO#) 0.06 K/mm3 BASOPHIL # (test code = BA#) 0.1 K/mm3
--- NOTE | 2024-08-17 11:55 | P.HP ---
Certification for Inpatient Patient admitted to: Inpatient With expected LOS: >2 Midnights Patient will require the following post-hospital care: None Practitioner: I am a practitioner with admitting privileges, knowledge of patient current condition, hospital course, and medical plan of care. Services: Services provided to patient in accordance with Admission requirements found in Title 42 Section 412.3 of the Code of Federal Regulations Patient History Date of Service: 08/17/24 Reason for admission: Small bowel obstruction History of Present Illness: Eros Craft is a 43 year old female with PMHX depression, small bowel obstructions, x3, cholecystectomy, and partial hysterectomy is a direct admit from [facility] for small bowel obstruction. She reports upper abdominal cramping started last night around 7:30pm then severe cramping this morning. She presented to [facility] this morning. Their evaluation showed kypokalemia, mild Ddimer, CT CAP revealed "moderate to severe mid small bowel obstruction of uncertain etiology". Laboratory evaluation D-dimer 558, potassium 2.8, UA negative, negative. CTA dissection reports "focal moderate to severe mid small bowel obstruction of uncertain etiology, minimal right upper quadrant ascites." Ultrasound bilateral lower extremities " bilateral common femoral, femoral, popliteal, and visualized calf veins are patent, no evidence of deep vein thrombosis." Eros will be admitted to hospitalist service for further evaluation and treatment of SBO and kypokalemia. Dr. Escalona consulted. Allergies No Known Allergies Allergy (Unverified 04/13/20 14:00) Home Medications: Escitalopram [Lexapro*] 1 tab PO DAILY 08/17/24 - Past Medical/Surgical History Diabetic: No -: depression -: History of small bowel obstruction -: cholecystectomy 05/2020 -: 3 C sections -: partial hysterectomy - Family History Father History Unknown: Yes Mother -: Diabetes Notes: Thyriod - Social History Smoking Status: Never smoker Alcohol use: No CD- Drugs: No Caffeine use: Yes Review of Systems Gastrointestinal: Abdominal Pain Physical Examination - Physical Exam General: Alert, In no apparent distress, Oriented x3 HEENT: Atraumatic, Normocephalic, PERRLA Neck: Supple, 2+ carotid pulse no bruit Respiratory: Clear to auscultation bilaterally, Normal air movement Cardiovascular: Normal pulses, Regular rate/rhythm, Normal S1 S2 Capillary refill: <2 Seconds Gastrointestinal: Normal bowel sounds, Soft and benign, Tenderness Integumentary: No rashes Neurological: Normal speech, Normal tone Assessment and Plan - Plan Assessment and plan Small bowel obstruction Hypokalemia -CT revealed small bowel obstruction -History of x 3, cholecystectomy, partial hysterectomy -Dr. Escalona consulted -Potassium 2.8, potassium IV 40 mill equivalents given before arrival from [facility] -BMP at 1600 to reevaluate -Potassium goal 4 -Protonix, IV fluid -Cipro and Flagyl -Pain control -N.p.o. -Continuous telemetry History of depression -Restart medication when taking p.o. DVT PPx SCD Full code LOS 2 to 3 days Discharge Plan: Home Plan to discharge in: 72 Hours - Advance Directives Does patient have a Living Will: No Does patient have a Durable POA for Healthcare: No
[2024-08-17] MEDS ORDERED: SODIUM CHLORIDE 0.9% 10ML INJ IV PRN (12:23)
[2024-08-17] MEDS: NA CHLORIDE 0.9% 1,000 ML IV SCH (13:11)
[2024-08-17] MEDS: CIPROFLOXACIN 400mg IV 400 MG/200 ML BAG IV SCH (13:12)
[2024-08-17] MEDS: ONDANSETRON 4 MG/2 ML VIAL IV PRN (14:03)
[2024-08-17 16:20] LABS: Anion Gap 8.7 mEq/L (5.0-15.0); Potassium 3.7 mEq/L (3.5-5.1)
[2024-08-17] MEDS: METRONIDAZOLE 500mg IVPB 500 MG/100 ML BAG IV SCH (16:51)
[2024-08-17] MEDS: PANTOPRAZOLE 40 MG INJ IVP SCH (19:54)
[2024-08-17] MEDS: MORPHINE 2 MG/ML SYR IV PRN (19:54)
[2024-08-17 20:17] LABS: Specific Gravity > 1.030 (1.005-1.030); Sqamous Epithelial <5 /HPF (None Seen); Urine Bacteria None Seen /HPF (<20); Urine Bilirubin NEGATIVE (Negative); Urine Blood Trace (Negative); Urine Clarity Clear (Clear); Urine Color Light-Yellow (Yellow); Urine Culture Reflex Order NOT NEEDED; Urine Glucose NEGATIVE (Negative); Urine Ketones 2+ (Negative); Urine Microscopic Reflex YN ORDER UMIC; Urine Mucus Slight /HPF (None Seen); Urine Nitrite NEGATIVE (Negative); Urine Protein NEGATIVE (Negative); Urine RBC <5 /HPF (None Seen); Urine Urobilinogen Normal (Normal); Urine WBC <5 /HPF (<5)
[2024-08-17] MEDS ORDERED: CIPROFLOXACIN 400mg IV 400 MG/200 ML BAG IV SCH (21:00)
--- NOTE | 2024-08-17 21:29 | CON ---
Date of Consultation: 08/17/2024 Reason For Consultation: Abdominal pain. History Of Present Illness: The patient is a 43-year-old female who presented to the [facility] Emergency Room with acute onset of epigastric chest pain going to the back with nausea, but no vomi ting. No diarrhea or constipation. No blood per rectum. No dysuria, hematuria. Last bowel movemen t was Saturday, and she did pass gas yesterday. She has had 3 episodes of partial small bowel obstru ction in the last 5 years. She has had multiple abdominal surgeries, including gallbladder surgery i n 2018, three C sections, and a recent partial hysterectomy done laparoscopically. She is awake and alert, complaining of some indigestion, occasional hiccups, and occasional nausea, but no vomiting. No severe abdominal pain. [facility] which was nega tive and PE workup was negative also; however, they did find that the patient had mild D-dimer elevat ion and CT of the abdomen and pelvis revealed [id number] mid small obstruction of uncertain e tiology. She had hypokalemia as well. Review of Systems: Negative for any fever or chills. Otherwise, unremarkable. Past Medical History: Significant for depression. Past Surgical History: Cholecystectomy, three C-sections, partial hysterectomy. Allergies: NONE. Social History: The patient does not smoke or drink alcohol. Family History: Significant for diabetes and thyroid disease. Physical Examination: Vital Signs: Currently are stable. She is afebrile. General: She is awake and alert. Oriented x3. Head and Neck: No masses. Chest: Clear. Heart: S1, S2. Abdomen: Soft, nondistended. Hypoactive bowel sounds. Mild tenderness, but no rebound. No rigidit y. No guarding. No abdominal wall hernia appreciated. Extremities: Adequately perfused, nontender. Neuro: Nonfocal. Laboratory Data: [facility], which showed no leukocytosis, normal H and H, and platelets were normal. Her electrolytes were essentially within normal limits. CT of the abdomen and pelvis per [facility]. Assessment: Likely partial small bowel obstruction secondary to adhesions. Recommendations: Continue n.p.o., IV fluids, IV antibiotics, proton pump inhibitor. Repeat abdomina l x-ray in a.m. Serial abdominal exams. Should she improve medically with conservative management, it likely will take 2 to 3 days. However, if she does not improve, she may initially require an NG t ube followed by surgical intervention. Plan of care discussed in detail with Dr. Bojorquez. THERON/DEMETRIO Voice ID: [id number] Report ID: [id number]
[2024-08-18 06:22] LABS: Anion Gap 7.4 mEq/L (5.0-15.0); Magnesium 2.1 mg/dL (1.6-2.4); Phosphorus 1.8 mg/dL (2.5-4.9); Potassium 3.4 mEq/L (3.5-5.1)
[2024-08-18 06:23] LABS: Absolute Eosinophils 0.2 K/uL (0-0.5); Absolute Lymphocytes (CBC) 1.2 K/uL (0.7-4.9); Absolute Monocytes 0.5 K/uL (0.1-1.3); Absolute Neutrophil 4.8 K/uL (1.8-8.0); Basophils % 0.3 % (0-1.3); Eosinophils % 2.4 % (0-4.4); Hematocrit 37.3 % (36.0-45.0); Hemoglobin 13.3 g/dL (12.0-15.0); Lymphocytes % 17.4 % (15.3-44.8); MCH 31.9 pg (27.0-35.0); MCHC 35.5 g/dL (32.0-36.0); MCV 89.8 fL (80-100); MPV 8.5 fL (7.6-11.3); Monocytes % 7.6 % (3.3-12.3); Neutrophils % 72.3 % (41.7-73.7); Platelets 287 thou/uL (152-406); RBC Red Blood Cell Count 4.16 M/uL (3.86-4.86); Red Cell Distribution Width 13.5 % (12.1-15.2)
--- NOTE | 2024-08-18 07:44 | RAD REPORT ---
EXAM: XR of the abdomen HISTORY: Abdominal pain SBO COMPARISON: Outside CT study FINDINGS: XR of the abdomen shows a a few mildly prominent left-sided small bowel loops. Bowel gas pa ttern appears somewhat improved relative to outside CT study.. Cholecystectomy clips. No suspicious calcifications are seen. The bones are unremarkable. No free air seen.
[2024-08-18] MEDS ORDERED: KCL 20 MEQ/100 mL IVPB 20 MEQ/100 ML BAG IV SCH (08:00)
[2024-08-18] MEDS: ESCITALOPRAM 20 MG TAB ONE (12:17)
--- NOTE | 2024-08-18 13:27 | P.PN ---
Date of Service: 08/18/24 Subjective: Some improvement in pain overnight Reports belching, abdominal grumbling Last bowel movement 08/15 ROS: 10 point ROS as noted above, otherwise negative Physical exam GEN: Alert, oriented, NAD HEENT: Normal conjunctiva, sclera anicteric CV: Regular rate and rhythm, no edema Pulm: Nonlabored respirations on room air ABD: Soft, mild generalized abdominal tenderness, worse in upper quadrants, nondistended MSK: No joint tenderness Integumentary: No rashes Neuro: Normal speech, normal affect Vitals reviewed Assessment and plan Small bowel obstruction Hypokalemia -CT revealed small bowel obstruction -History of x 3, cholecystectomy, partial hysterectomy, previous bowel obstructions -Dr. Escalona consulted -Okay to start clear liquid diet today -Repeat x-ray in the morning -Protonix, IV fluid -Cipro and Flagyl -Pain control History of depression -Lexapro restarted DVT PPx SCD Full code LOS 2 to 3 days Discharge Plan: Home Plan to discharge in: 72 Hours Time Spent Managing Pts Care (In Minutes): 35
[2024-08-18] MEDS: ESCITALOPRAM 20 MG TAB PO SCH (14:00)
[2024-08-18] MEDS: POTASSIUM PHOS IN 0.9 % NACL 15 MMOL/250 ML BAG IV SCH (14:14)
[2024-08-18] MEDS: KETOROLAC 30 MG/ML INJ IV PRN (14:14)
--- NOTE | 2024-08-18 14:50 | PN ---
Date of Progress Note: 08/18/2024 Subjective: The patient is awake, alert. Feels a little better. No nausea or vomiting. Pain is be tter. Has not had a bowel movement. She is not sure whether she has passed gas or not. Objective: Vital Signs: Stable. She is afebrile. Laboratory Data: Reviewed. White count is normal. Chemistry reviewed. She has hypokalemia which i s being corrected and phosphorus is low, which is being replaced. Abdominal x-ray shows improvement in the small bowel obstruction pattern with only a few loops remaining that are dilated. Assessment: Small bowel obstruction, likely partial, slowly improving. Recommendation: Start clear liquids. Encouraged ambulation and hopefully the patient will be able t o tolerate diet. If so, patient can be discharged to home in 24-48 hours depending upon clinical res ponse. /MODL Voice ID: [id number] Report ID: [id number]
[2024-08-18 16:45] VITALS: BMI 32.9
[2024-08-19 04:40] LABS: Absolute Basophils 0.1 K/uL (0-0.5); Hemoglobin 12.2 g/dL (12.0-15.0); MCHC 35.1 g/dL (32.0-36.0); MPV 8.1 fL (7.6-11.3); Nucleated Red Blood Cells % 0.1 % (0-0)
[2024-08-19 04:52] LABS: Anion Gap 6.5 mEq/L (5.0-15.0); Magnesium 2.2 mg/dL (1.6-2.4); Phosphorus 1.7 mg/dL (2.5-4.9); Potassium 3.5 mEq/L (3.5-5.1)
[2024-08-19 04:58] LABS: Absolute Eosinophils 0.2 K/uL (0-0.5); Absolute Lymphocytes (CBC) 1.5 K/uL (0.7-4.9); Absolute Monocytes 0.4 K/uL (0.1-1.3); Absolute Neutrophil 1.9 K/uL (1.8-8.0); Basophils % 1.2 % (0-1.3); Hematocrit 34.7 % (36.0-45.0); Lymphocytes % 37.2 % (15.3-44.8); MCH 31.8 pg (27.0-35.0); MCV 90.5 fL (80-100); Monocytes % 8.5 % (3.3-12.3); Neutrophils % 47.1 % (41.7-73.7); Platelets 273 thou/uL (152-406); RBC Red Blood Cell Count 3.83 M/uL (3.86-4.86); Red Cell Distribution Width 13.2 % (12.1-15.2)
--- NOTE | 2024-08-19 08:23 | RAD REPORT ---
EXAM: XR Abdomen W Erect HISTORY: [facility] eval sbo/bowel COMPARISON: 08/18/2024 FINDINGS: Single view of the abdomen shows a nonspecific, nonobstructive bowel gas pattern. Mild stoo l burden particularly along the ascending colon. Right upper quadrant surgical clips suggesting prior cholecystectomy. No suspicious calcifications are seen. The bones are unremarkable. IMPRESSION: Nonobstructive bowel gas pattern.
[2024-08-19] MEDS: POTASSIUM CL SA 10 MEQ TAB PO ONE (08:51)
--- NOTE | 2024-08-19 11:14 | PN ---
Date of Progress Note: 08/19/2024 Subjective: The patient is awake, alert, tolerating clear liquids. Passing gas. No bowel movement. Objective: Vital Signs: Stable, afebrile. Abdomen: Soft, nondistended, nontender. Positive bowel sounds. Imaging: Her CAT scan and abdominal x-ray reviewed with the radiologist. The abdominal x-ray shows improvement in the small bowel obstruction pattern. There is no evidence of it anymore. However, th e CT shows no possible stricture in the small bowel, which would need further workup that can be done as an outpatient. Assessment: Small bowel obstruction, partial, possibly secondary to a stricture in the small bowel. Recommendations: We will advance her diet to full liquids. We will get dietitian to speak to her ab out dietary modifications to help avoid this complication in the future; however, as an outpatient, johan tamayo can work her up with an MRI of the small intestine and then refer her to appropriate surgical servi carroll in [place] should she need intervention. Plan of care discussed in detail with the hospitalist eros tamez as well as the patient and family. /MODL Voice ID: [id number] Report ID: [id number]
[2024-08-19] MEDS: POTASSIUM PHOS IN 0.9 % NACL 15 MMOL/250 ML BAG IV ONE (12:11)
--- NOTE | 2024-08-19 14:15 | P.DS ---
Admission Date: 08/17/24 Discharge Date: 08/19/24 Disposition: ROUTINE DISCHARGE Discharge Condition: GOOD Reason for Admission: Small bowel obstruction Consultations: general surgery-Dr. Escalona Brief History of Present Illness: Eros Craft is a 43 year old female with PMHX depression, small bowel obstructions, x3, cholecystectomy, and partial hysterectomy is a direct admit from [facility] for small bowel obstruction. She reports upper abdominal cramping started last night around 7:30pm then severe cramping this morning. She presented to [facility] this morning. Their evaluation showed kypokalemia, mild Ddimer, CT CAP revealed "moderate to severe mid small bowel obstruction of uncertain etiology". Laboratory evaluation D-dimer 558, potassium 2.8, UA negative, negative. CTA dissection reports "focal moderate to severe mid small bowel obstruction of uncertain etiology, minimal right upper quadrant ascites." Ultrasound bilateral lower extremities " bilateral common femoral, femoral, po pliteal, and visualized calf veins are patent, no evidence of deep vein thrombosis." Eros will be admitted to hospitalist service for further evaluation and treatment of SBO and kypokalemia. Dr. Escalona consulted. Hospital Course: Assessment Small bowel obstruction Hypokalemia History of depression Patient was admitted to the hospital for small bowel obstruction. She was treated conservatively with n.p.o. status and IV antibiotics. She slowly improved without the need for NG tube or surgical intervention. She is tolerating a full liquid diet, did have a bowel movement today and is feeling much better, she is stable for discharge and outpatient follow-up. General surgery reviewed CT and was concern for possible stricture, will need outpatient imaging to confirm or deny and determine future plan of action. Continue home medication as previously prescribed Antibiotics Cipro/Flagyl for 3 days sent to pharmacy Follow-up my office in 2 weeks after discharge, call for appointment Vital Signs/Physical Exam: Temp Pulse Resp BP Pulse Ox 97.9 F 54 20 114/70 99 08/19/24 08:00 08/19/24 08:00 08/19/24 08:00 08/19/24 08:00 08/19/24 08:00 General: Alert, In no apparent distress, Oriented x3 HEENT: Atraumatic, PERRLA Neck: Supple, JVD not distended Respiratory: Clear to auscultation bilaterally, Normal air movement Cardiovascular: Regular rate/rhythm, Normal S1 S2 Gastrointestinal: Normal bowel sounds, No tenderness Musculoskeletal: No tenderness Integumentary: No rashes Neurological: Normal speech, Normal affect Laboratory Data at Discharge: WBC 4.10 thou/uL (4.3-10.9) L 08/19/24 04:10 Hgb 12.2 g/dL (12.0-15.0) D 08/19/24 04:10 Hct 34.7 % (36.0-45.0) L 08/19/24 04:10 Plt Count 273 thou/uL (152-406) 08/19/24 04:10 Sodium 141 mEq/L (136-145) 08/19/24 04:10 Potassium 3.5 mEq/L (3.5-5.1) 08/19/24 04:10 BUN 4 mg/dL (7-18) L 08/19/24 04:10 Creatinine 0.64 mg/dL (0.55-1.02) 08/19/24 04:10 Glucose 99 mg/dL (74-106) 08/19/24 04:10 Phosphorus 1.7 mg/dL (2.5-4.9) L 08/19/24 04:10 Magnesium 2.2 mg/dL (1.6-2.4) 08/19/24 04:10 Triglycerides 89 mg/dL (<150) 08/18/24 04:06 Cholesterol 171 mg/dL (<200) 08/18/24 04:06 HDL Cholesterol 59 mg/dL (40-60) 08/18/24 04:06 Cholesterol/HDL Ratio 2.90 08/18/24 04:06 Lipase 34 U/L (13-75) 08/18/24 04:06 Home Medications: Escitalopram [Lexapro*] 1 tab PO DAILY 08/17/24 Ciprofloxacin HCl 500 mg PO BID 3 Days #6 tab 08/19/24 metroNIDAZOLE [Flagyl] 500 mg PO Q8H 3 Days #9 tab 08/19/24 New Medications: Ciprofloxacin HCl 500 mg PO BID 3 Days #6 tab metroNIDAZOLE [Flagyl] 500 mg PO Q8H 3 Days #9 tab Physician Discharge Instructions: Patient was admitted to the hospital for small bowel obstruction. She was treated conservatively with n.p.o. status and IV antibiotics. She slowly improved without the need for NG tube or surgical intervention. She is tolerating a full liquid diet, did have a bowel movement today and is feeling much better, she is stable for discharge and outpatient follow-up. General surgery reviewed CT and was concern for possible stricture, will need outpatient imaging to confirm or deny and determine future plan of action. Continue home medication as previously prescribed Antibiotics Cipro/Flagyl for 3 days sent to pharmacy Follow-up my office in 2 weeks after discharge, call for appointment Diet: Small soft Activity: Ad girish Followup: Luis Miguel Escalona MD [ACTIVE - CAN ADMIT] - 1-2 Weeks Time spent managing pt's care (in minutes): 45
--- NOTE | 2024-08-20 22:39 | RAD REPORT ---
EXAM: CT CHEST, ABDOMEN AND PELVIS WITH CONTRAST CLINICAL INDICATION: Female, 43 years old. Abdominal pain. Concern for small bowel obstruction. RADHA OLIVEIRA FOR DR ESCALONA TECHNIQUE: CT chest, abdomen, and pelvis was performed at an outside facility, following the administ ration of contrast, as per department protocol. Axial, sagittal and coronal reconstructions were obtained. The exam was submitted for secondary interpretation, by Dr. Escalona. The original report is n ot available for review. COMPARISON: 12/03/2021 and 01/17/2021 CT abdomen and pelvis. FINDINGS: LUNGS AND AIRWAYS: No evidence of airspace or interstitial process. No nodules. PLEURA: No pleural effusion. No pneumothorax. MEDIASTINUM AND LYMPH NODES: No mediastinal mass or fluid collection. Normal size mediastinal, hilar, and axillary lymph nodes. THORACIC AORTA: Normal caliber and configuration. PULMONARY ARTERIES: Normal caliber, with no filling defects of the proximal pulmonary artery branches bilaterally. Suboptimal contrast timing limits evaluation. OSSEOUS STRUCTURES AND CHEST WALL: Intact. LIVER: Normal in size and contour. Multiple fluid density lesions, largest in the inferior subcapsula r aspect of the left lobe measuring 2.5 cm, stable. No suspicious focal lesion or biliary dilitation. BILIARY SYSTEM: Status post cholecystectomy. PANCREAS: No mass, ductal dilation, or neyda-pancreatic fluid. SPLEEN: Normal size. No focal lesion. ADRENALS: Normal; no mass. KIDNEYS AND URETERS: Normal size and contour. No hydronephrosis. Right lower pole cortical 11 mm cyst , stable URINARY BLADDER: Normal contour. GASTROINTESTINAL TRACT: Distal small bowel dilation with fluid levels and fecalization along the dist ended segment in the right lower quadrant. There is abrupt transition to nondistended ileum with wall thickening and hyperenhancement, with the transition point seen on axial image 90/133. The findi ngs appear relatively stable since 12/03/2021. Mild fluid opacification of nondistended ascending colon. APPENDIX: No inflammatory changes in region of appendix. LYMPH NODES: No lymphadenopathy. ABDOMINAL AORTA AND OTHER VESSELS: Normal caliber aorta and IVC. MUSCULOSKELETAL: No acute or suspicious osseous abnormality. IMPRESSION: No acute or significant abnormalities seen in the chest, abdomen or pelvis. Distal small bowel dilation with fecalization along the distended segment in the right lower quadrant . There is abrupt transition to nondistended ileum with wall thickening and hyperenhancement, with the transition point seen on axial image 90/133. The findings appear relatively stable since 12/03/2021 , and suggest a small bowel stricture, which could be related to prior infection or inflammatory bowel disease. Mild free ascites. Other stable incidental findings as above..
[2024-08-21 01:07] VITALS: BP 111/78; TEMP 98.2
== END 2024-08-19 14:49 | disposition home or self-care (01) | DRG 390 ==
LOC: 2ND 11:25
PROVIDERS: ADMIT Internal Medicine; ATTEND Hospitalist
DX: K56.50 Intestinal adhesions [bands], unspecified as to partial versus complete obstruction (principal); Z90.49 Acquired absence of other specified parts of digestive tract; Z90.710 Acquired absence of both cervix and uterus; F32.A Depression, unspecified; E87.6 Hypokalemia
CPT/HCPCS: 36415; 74019; 80048; 80061; 81001; 83690; 83735; 84100; 85025; J0744; J2270; J2405; J2470; J7030